=== PATIENT | female | born 1980 | race Caucasian/White ===

== ENCOUNTER 2021-08-05 18:09 | Emergency (ER) | payer BC, MEDICAID, SELFPAY ==
[2021-08-05] VITALS (15 sets, daily range): BP systolic 97–115; BP diastolic 61–71; PULSE 93; RESP 17–18; TEMP 36.9; O2SAT 92–99; BMI 34.7
--- NOTE | 2021-08-05 19:15 | ED_ITS ---
HPI - Female Genitourinary General: Chief complaint: Urogenital-Female Stated complaint: Kidneys hurting, body ache, Vomiting Time Seen by Provider: 08/05/21 19:15 Course Vital Signs: Vital signs: Vital Signs Temperature 98.5 F 08/05/21 18:42 Pulse Rate 93 08/05/21 18:42 Respiratory Rate 17 08/05/21 18:42 Blood Pressure 97/61 08/05/21 18:42 Pulse Oximetry 99 08/05/21 18:42 Coding Level of Care Code ED Scholarship Counselor for Dank Allen
--- NOTE | 2021-08-05 19:22 | W.ED.FEMALGU ---
HPI - Female Genitourinary General: Chief complaint: Urogenital-Female Stated complaint: Kidneys hurting, body ache, Vomiting Time Seen by Provider: 08/05/21 19:15 Source: patient Mode of arrival: ambulatory Limitations: no limitations History of Present Illness: HPI Narrative: 41-year-old female states that she has had a fever along with body aches with flank pain and vomiting over the last 2 to 3 days. States the left flank hurts more than the right flank states she has had difficulty tolerating any p.o. and feels dehydrated. She states she was having some dysuria but has had less urination lately. Denies any abdominal pain denies any worsening improving factors. Denies any cough or sick contacts. Denies any vaginal discharge. Associated symptoms: Reports nausea; Deny headache(s) Review of Systems Const: Reports: fever(s), chills and body aches Eyes: Denies: blurry vision or eye discomfort ENMT: Denies: throat pain or dental pain Card: Denies: chest pain Resp: Denies: dyspnea GI: Reports: nausea and vomiting : Reports: flank pain Musc: Denies: neck pain or back pain Skin/Breast: Denies: rash Neuro: Denies: headache(s) Psych: Denies: depression Ezequiel/Lymph: Denies: easy bruising All/Imm: Denies: urticaria Physical Exam Const: COMMON NORMALS: no acute distress, patient oriented x3 and healthy appearing HENMT: COMMON NORMALS: normocephalic and atraumatic HEAD & SCALP: normocephalic and atraumatic Eye: COMMON NORMALS: Equal, round and reactive pupils present and EOMs intact bilaterally PUPIL: Yes Equal, round and reactive pupils present Neck/C-Spine: COMMON NORMALS: full ROM and supple Chest: COMMONS NORMALS: normal inspection of the chest and normal palpation of entire chest wall Resp: COMMON NORMALS: normal respiratory effort, No retractions, No use of accessory muscles and clear to auscultation bilaterally AUSCULTATION: clear to auscultation bilaterally Cardio: COMMON NORMALS: regular rate, regular rhythm and No murmurs present (Cardio) RATE: regular rate RHYTHM: regular rhythm GI: COMMON NORMALS: Normal to inspection, nondistended, normoactive bowel sounds present, Soft to palpation, non-tender and no masses PALPATION: Yes Soft to palpation : OTHER: Left flank tenderness Extremity: COMMON NORMALS: normal to inspection and full ROM Neuro: COMMON NORMALS: patient oriented x3, moves all extremities and no focal motor deficits Psych: COMMON NORMALS: mental status grossly normal, Normal thought process present and cooperative THOUGHT PROCESS: Normal thought process present Skin: COMMON NORMALS: no rashes or lesions noted and no wounds GENERAL SKIN EXAM: no rashes or lesions noted Course Vital Signs: Vital signs: Vital Signs Temperature 98.5 F 08/05/21 18:42 Pulse Rate 93 08/05/21 18:42 Respiratory Rate 18 08/05/21 23:23 Blood Pressure 114/67 08/05/21 20:20 Pulse Oximetry 98 08/05/21 20:20 MDM - Female MDM Narrative: Medical decision making narrative: Patient presents here with vomiting, flank pain could have a viral gastritis patient's blood work CAT scan and urinalysis are all normal she feels improved here we will place her on pain meds along with nausea meds she is to follow-up with PCP and return if worsening she understands agrees to plan. Lab Data: Labs: Lab Results 08/05/21 08/05/21 08/05/21 19:44 19:44 19:44 WBC 4.5 10^3/uL 10^3/ uL (4.0-10.0) RBC 4.20 10^6/uL 10^6 /uL (4.1-5.3) Hgb 12.4 g/dL g/dL (11.5-15.3) Hct 36.9 % L % (37.0-47.0) MCV 87.9 fl fl (81-99) MCH 29.5 pg pg (28.0-34.0) MCHC 33.6 g/dL g/dL (30.0-36.0) RDW 14.0 % % (12.1-15.1) Plt Count 148 10^3/cmm 10^3 /cmm (130-400) MPV 10.1 fL fL (7.4-10.4) Neut % (Auto) 65.4 % % Lymph % (Auto) 28.5 % % Sandoval % (Auto) 5.5 % % Eos % (Auto) 0.2 % % Baso % (Auto) 0.2 % % Neut # (Auto) 2.96 10^3/uL 10^3 /uL (1.8-7.7) Lymph # (Auto) 1.3 10^3/uL 10^3/ uL (0.8-4.8) Sandoval # (Auto) 0.3 10^3/uL 10^3/ uL (0.2-0.9) Eos # (Auto) 0.0 10^3/uL 10^3/ uL (0.0-0.8) Baso # (Auto) 0.0 10^3/uL 10^3/ uL (0.0-0.1) Nucleated RBC % (a uto) 0 % % Nucleated RBCs # 0.0 /100WBC /100W BC Sodium Cancelled Potassium Cancelled Chloride Cancelled Carbon Dioxide Cancelled Anion Gap Cancelled BUN Cancelled Creatinine Cancelled GFR Calculation Cancelled Glucose Cancelled Calculated Osmolal ity Cancelled Calcium Cancelled Total Bilirubin Cancelled AST Cancelled ALT Cancelled Alkaline Phosphata se Cancelled Total Protein Cancelled Albumin Cancelled Globulin Cancelled Lipase Cancelled HCG, Qual Negative (Negative) Urine Color Urine Appearance Urine pH Ur Specific Gravit y Urine Protein Urine Glucose (UA) Urine Ketones Urine Blood Urine Nitrate Urine Bilirubin Urine Urobilinogen Ur Leukocyte Lisa ase Urine RBC Urine WBC Ur Squamous Epith Cells Amorphous Sediment Urine Bacteria Urine Mucus 08/05/21 08/05/21 20:21 21:31 WBC RBC Hgb Hct MCV MCH MCHC RDW Plt Count MPV Neut % (Auto) Lymph % (Auto) Sandoval % (Auto) Eos % (Auto) Baso % (Auto) Neut # (Auto) Lymph # (Auto) Sandoval # (Auto) Eos # (Auto) Baso # (Auto) Nucleated RBC % (a uto) Nucleated RBCs # Sodium 137 mmol/L mmol/L (136-145) Potassium 3.8 mmol/L mmol/L (3.5-5.1) Chloride 104 mmol/L mmol/L (98-107) Carbon Dioxide 19 mmol/L L mmol/ L (22-29) Anion Gap 17.8 (5-19) BUN 6 mg/dL mg/dL (6-20) Creatinine 0.6 mg/dL mg/dL (0.5-0.9) GFR Calculation 110.2 mL/min mL/m in (90-130) Glucose 93 mg/dL mg/dL (65-115) Calculated Osmolal ity 281 mOsm/kg L mOs m/kg (285-295) Calcium 7.7 mg/dL L mg/dL (8.5-10.5) Total Bilirubin 0.2 mg/dL mg/dL (0.15-1.2) AST 18 U/L U/L (0-32) ALT 19 U/L U/L (0-33) Alkaline Phosphata se 44 IU/L IU/L (35-105) Total Protein 6.4 g/dL L g/dL (6.6-8.7) Albumin 3.8 g/dL g/dL (3.5-5.2) Globulin 2.6 g/dL g/dL (1.3-4.6) Lipase 81 U/L H U/L (13-60) HCG, Qual Urine Color Yellow (Yellow) Urine Appearance Clear (CLEAR) Urine pH 5 (5-7) Ur Specific Gravit y 1.020 (1.005-1.030) Urine Protein Neg (Negative) Urine Glucose (UA) Norm (Normal) Urine Ketones 2+ H (Negative) Urine Blood Trace H (Negative) Urine Nitrate Negative (Negative) Urine Bilirubin Neg (Negative) Urine Urobilinogen Norm mg/dL mg/dL (Negative) Ur Leukocyte Lisa ase 1+ H (Negative) Urine RBC 0-4 /hpf H /hpf (0-2) Urine WBC 5-10 /hpf H /hpf (0-5) Ur Squamous Epith Cells 15-25 /hpf H /hpf (0-5) Amorphous Sediment Not Reportable Urine Bacteria 1+ /hpf H /hpf (NONE) Urine Mucus 2+ /hpf /hpf Imaging Data: CT Abd/Pel: Attestation: I personally reviewed and interpreted this imaging study as follows: Radiologist's impression: CT Scan Report Signed Patient: Elis Weiner Unit #: [id number] : 12/09/1956 Age/Sex: 64 / F ADM Date: 08/05/21 Loc: ER Room/Bed: Attending Dr: Ordering Provider/Ordering MD: Robin Obregon MD Date of Service: 08/05/21 Procedure(s): CT abdomen pelvis w con* [id number] Accession Number(s): [id number] Report Number: [id number] PROCEDURE INFORMATION: Exam: CT Abdomen And Pelvis With Contrast Exam date and time: 08/05/2021 8:43 PM Age: 64 years old Clinical indication: Abdominal pain; Localized; Right; Patient HX: C/O R sided abd pain TECHNIQUE: Imaging protocol: Computed tomography of the abdomen and pelvis with contrast. Radiation optimization: All CT scans at this facility use at least one of these dose optimization techniques: automated exposure control; mA and/or kV adjustment per patient size (includes targeted exams where dose is matched to clinical indication); or iterative reconstruction. Contrast material: OMNI 300; Contrast volume: 95 ml; Contrast route: INTRAVENOUS (IV); COMPARISON: MR pelvis wo con* [id number] 05/15/2016 6:46 AM RADIATION DOSE METRICS: Total DLP (mGy-cm): 1875.21 FINDINGS: Liver: Normal. No mass. Gallbladder and bile ducts: Normal. No calcified stones. No ductal dilation. Pancreas: Normal. No ductal dilation. Spleen: Normal. No splenomegaly. Adrenal glands: Normal. No mass. Kidneys and ureters: Possible small nonobstructing left renal lower pole stone. Negative for hydronephrosis. Subcentimeter simple bilateral renal cortical cysts. Hyperdense mass extends laterally from the lower pole cortex of the left kidney. The borders are somewhat lobulated. The lesion is fairly isoattenuating to the enhancing renal parenchyma. The lesion measures 2.1 cm x 2.0 cm. Stomach and bowel: Diverticulosis coli. No focal bowel wall inflammatory change. Negative for obstruction. Negative for perforation. Appendix: Normal appendix. Intraperitoneal space: Unremarkable. No free air. No significant fluid collection. Vasculature: Unremarkable. No abdominal aortic aneurysm. Lymph nodes: No abdominal lymphadenopathy. Mild left inguinal lymphadenopathy. Urinary bladder: Unremarkable as visualized. Reproductive: Hysterectomy. Bones/joints: Left hip arthroplasty has unremarkable alignment. No acute fractures. Moderate severity disc disease at L4-L5. Soft tissues: Mild degree of hazy fat stranding changes in the left inguinal subcutaneous fat. CT/CT abdomen pelvis w con* [id number] IMPRESSION: 1. No acute intra-abdominal abnormality. 2. Indeterminate left renal mass. Recommend outpatient evaluation with multiphasic contrast enhanced CT or MRI with renal protocol without and with contrast. 3. Fat stranding changes in the left groin with mild nonspecific reactive left inguinal lymphadenopathy. COMMENTS: Consistent with the [employer]'s Incidental Findings Committee white paper (J [employer] Remi [employer]iol 2018): Any incidental renal lesion less than 1 cm or classified as too small to characterize, or any incidental cystic renal lesion characterized as simple-appearing, is likely benign. No follow-up imaging is recommended for these lesions per consensus recommendations based on imaging criteria. Radiation Dose CTDIVOL = (mGy): DLP = 1875.21 (mGy-cm) Dictated By: Sonny Shah Signed By: Sonny Shah Signed Date/Time: 08/05/212210 Discharge Plan Discharge Patient Disposition: Home Clinical Impression: Bilateral flank pain Vomiting Qualifiers: Vomiting type: unspecified Vomiting Intractability: non-intractable Nausea presence: with nausea Qualified Code(s): R11.2 - Nausea with vomiting, unspecified Condition: Stable Prescriptions: New hydrocodone-acetaminophen 5-325 mg tablet 1 tab PO Q6H PRN (Reason: pain) Qty: 14 RF: 0 ondansetron 4 mg tablet,disintegrating 4 mg PO Q6H PRN (Reason: nausea and vomiting) Qty: 14 RF: 0 Discharge Orders: Discharge ED (Routine); Ordered 08/05/21 Ordered By: Robin Obregon Referrals: Aby Collins MD [Family Provider] - 1-3 days Discharge Diet: Advance as tolerated Discharge Activity: Resume usual activity Patient Instructions: Acute Nausea and Vomiting in Children (ED), Opioid Safety Coding Level of Care Code ED Consulting Technical Director for Chg Fwd Exam Comprehensive
[2021-08-05] MEDS: sodium chloride 0.9% 1,000 ML 999 ML IV ×2 (19:33→21:56)
[2021-08-05] MEDS: morphine 4 mg/mL SDV 1 mL IVP ×2 (19:33→21:55)
[2021-08-05] MEDS: ondansetron 2 mg/ML SDV 2 mL 4 MG IVP (19:33)
[2021-08-05 20:07] LABS: Basophils % 0.2 %; Eosinophils % 0.2 %; Hematocrit 36.9 % (37.0-47.0); Hemoglobin 12.4 g/dL (11.5-15.3); Lymphocytes # 1.3 10^3/uL (0.8-4.8); Lymphocytes % 28.5 %; Mean Corpuscular HGB Conc 33.6 g/dL (30.0-36.0); Mean Corpuscular Hemoglobin 29.5 pg (28.0-34.0); Mean Corpuscular Volume 87.9 fl (81-99); Mean Platelet Volume 10.1 fL (7.4-10.4); Monocytes # 0.3 10^3/uL (0.2-0.9); Monocytes % 5.5 %; Neutrophils # 2.96 10^3/uL (1.8-7.7); Neutrophils % 65.4 %; Nucleated Red Blood Cells % 0 %; Platelet Count 148 10^3/cmm (130-400); White Blood Count 4.5 10^3/uL (4.0-10.0)
[2021-08-05 20:08] LABS: HCG, Serum Qual Negative (Negative)
[2021-08-05 20:56] LABS: Alanine Aminotransferase 19 U/L (0-33); Albumin Level 3.8 g/dL (3.5-5.2); Alkaline Phosphatase 44 IU/L (35-105); Anion Gap 17.8 (5-19); Aspartate Amino Transferase 18 U/L (0-32); Blood Urea Nitrogen 6 mg/dL (6-20); Calcium 7.7 mg/dL (8.5-10.5); Carbon Dioxide 19 mmol/L (22-29); Chloride 104 mmol/L (98-107); Globulin 2.6 g/dL (1.3-4.6); Glomerular Filtration Rate 110.2 mL/min (90-130); Glucose 93 mg/dL (65-115); Lipase 81 U/L (13-60); Osmolality Calculated 281 mOsm/kg (285-295); Potassium 3.8 mmol/L (3.5-5.1); Sodium 137 mmol/L (136-145); Total Bilirubin 0.2 mg/dL (0.15-1.2); Total Protein 6.4 g/dL (6.6-8.7)
--- NOTE | 2021-08-05 21:22 | CTR_ITS ---
PROCEDURE INFORMATION: Exam: CT Abdomen And Pelvis With Contrast Exam date and time: 08/05/2021 9:22 PM Age: 41 years old Clinical indication: Abdominal pain; Other: Cal; Prior surgery; Surgery date: 6+ months; Surgery type: C-sect; Patient HX: C/O b flank pain l>r w n/v TECHNIQUE: Imaging protocol: Computed tomography of the abdomen and pelvis with contrast. Radiation optimization: All CT scans at this facility use at least one of these dose optimization techniques: automated exposure control; mA and/or kV adjustment per patient size (includes targeted exams where dose is matched to clinical indication); or iterative reconstruction. Contrast material: OMNI 300; Contrast volume: 95 ml; Contrast route: INTRAVENOUS (IV); COMPARISON: CT Abdomen/Pelvis Renal [id number] 06/12/2017 12:58 PM RADIATION DOSE METRICS: Total DLP (mGy-cm): 1726.22 FINDINGS: Lungs: Semi solid nodule in the left lower lobe measuring 8 mm. Liver: Normal. No mass. Gallbladder and bile ducts: No wall thickening, pericholecystic fluid or stones. Pancreas: Normal. No ductal dilation. Spleen: Normal. No splenomegaly. Adrenal glands: Normal. No mass. Kidneys and ureters: Normal. No hydronephrosis. Stomach and bowel: Unremarkable. No obstruction. No mucosal thickening. Appendix: No evidence of appendicitis. Intraperitoneal space: Small amount of free fluid in the pelvis. Vasculature: Unremarkable. No abdominal aortic aneurysm. Lymph nodes: Unremarkable. No enlarged lymph nodes. Urinary bladder: Unremarkable as visualized. Reproductive: Unremarkable as visualized. Bones/joints: Unremarkable. No acute fracture. Soft tissues: Unremarkable. CT/CT abdomen pelvis w con* [id number] IMPRESSION: 1. No cause for acute pain is identified. 2. Semi solid nodule in the left lower lobe measuring [address] Chest at 6-12 months to confirm persistence of the nodule, then CT Chest at 3 years and 5 years. (Reference: Tom) 3. Small amount of free fluid in the pelvis. REFERENCES: Tom Tejeda et al. Guidelines for Management of Incidental Pulmonary Nodules Detected on CT Images: From the [employer] 2017. Radiology. 2017;284(1):228-243. Radiation Dose CTDIVOL = (mGy): DLP = 1726.22 (mGy-cm)
[2021-08-05] MEDS: iohexol 300 mg/mL 100 mL Btl IV (21:58)
[2021-08-05 22:43] LABS: Add Urine Microscopic? YES; Bilirubin Urine Neg (Negative); Blood Urine Trace (Negative); Glucose Urine UA Norm (Normal); Ketones Urine 2+ (Negative); Leukocyte Esterase Urine 1+ (Negative); Nitrate Urine Negative (Negative); Protein Urine Neg (Negative); Urine Appearance Clear (CLEAR); Urine Color Yellow (Yellow); Urobilinogen Urine Norm (Negative); pH Urine 5 (5-7)
[2021-08-05 22:44] LABS: Add Urine Culture? No; Bacteria Urine 1+ /hpf; Mucus Urine 2+ /hpf; RBC Urine 0-4 /hpf (0-2); Squamous Epithelial Cell Urine 15-25 /hpf (0-5)
[2021-08-05] MEDS: HYDROmorphone 1 mg/mL INJ 1 mL IVP (23:23)
== END 2021-08-05 23:55 | disposition home or self-care (01) ==
PROVIDERS: Emergency Provider Emergency Medicine
DX: R10.9 Unspecified abdominal pain (principal); R11.2 Nausea with vomiting, unspecified
CPT/HCPCS: 74177; 80053; 81001; 83690; 84703; 85025; 96361; 96374; 96375; 96376; 99284; J1170; J2270; J2405; J7030; Q9967

== ENCOUNTER 2021-08-09 13:34 | Outpatient (CLI) | payer OTHER, BC, MEDICAID, SELFPAY ==
--- NOTE | 2021-08-09 13:46 | US_ITS ---
WS: [id number] TRANSABDOMINAL PELVIC AND TRANSVAGINAL PELVIC ULTRASOUND HISTORY: LEFT PELVIC PAIN/FEVER COMPARISON: None available. Uterus: 7.7 cm x 5.3 cm x 4.1 cm. Normal size anteverted uterus. Endometrium: 0.5 cm. Poorly visualized but no abnormality identified. LEFT ovary: 2.7 cm x 1.9 cm x 1.4 cm. RIGHT ovary is not visualized. There is a small amount of free fluid in the cul-de-sac. US/US pelvic with transvaginal IMPRESSION: 1. Technically very difficult evaluation of the uterus and ovaries. 2. RIGHT ovary is not visualized. The LEFT ovary is unremarkable. 3. Small amount of free fluid in the cul-de-sac.
== END 2021-08-09 13:35 | disposition home or self-care (01) ==
PROVIDERS: PCP Family Medicine; Visit Provider Family Medicine
DX: R10.2 Pelvic and perineal pain (principal); R50.9 Fever, unspecified
CPT/HCPCS: 76830; 76856; 93976

== ENCOUNTER 2021-08-11 11:02 | Inpatient (IN) | payer OTHER, BC, MEDICAID, SELFPAY ==
[2021-08-11] VITALS (8 sets, daily range): BP systolic 102–121; BP diastolic 65–69; PULSE 69–87; RESP 14–20; TEMP 36.7; O2SAT 92–95; BMI 34.7
--- NOTE | 2021-08-11 11:44 | ED_ITS ---
Documented by User: RANJANA Price 08/12/21 07:08 HPI - Female Genitourinary General: Chief complaint: Urogenital-Female Stated complaint: Kidney infection Time Seen by Provider: 08/11/21 11:19 Source: patient Mode of arrival: ambulatory Limitations: no limitations History of Present Illness: HPI Narrative: Patient is a nice 41-year-old female who presents to ED today with a complaint of severe left flank pain. Patient was seen in our facility on 08/05 with bilateral flank pain nausea and vomiting. According to documentation her labs and UA were fairly unremarkable. CT imaging was normal. Patient was discharged home with hydrocodone/zofran. She states symptoms did not seem to be improving so she contacted her PCP Dr. Conrad who saw her in his office. She states UA was performed which looked suspicious for infection and was therefore placed on ciprofloxacin. She has been on this medication for the past 3 days and is still not improving. She complains of left flank pain, left-sided abdominal pain, dysuria, and urinary frequency. She reports chills and subjective fevers. She does report starting her menstrual cycle a few days ago which was earlier than normal (she contacted Dr. Conrad regarding this and he did order a pelvic ultrasound which was normal). She has no history of pyelonephritis or nephrolithiasis. MD elicited complaint: dysuria and flank pain Severity: severe Female Urogenital Radiation: LLQ and L Flank Quality of pain: sharp Consistency: constant Vaginal discharge: none Associated symptoms: Reports nausea; Deny abdominal pain, headache(s) or vaginal discharge Treatment prior to arrival: other (pain/nausea meds, antibiotics) Sexual activity: Yes (monogamous with ) Patient : No Review of Systems Const: Reports: fever(s) (subjective), chills and change in appetite; Denies: body aches Card: Denies: chest pain Resp: Denies: dyspnea GI: Reports: nausea and vomiting; Denies: abdominal pain, diarrhea or change in bowel habits : Reports: flank pain, dysuria, urinary frequency and hematuria (unknown; taking Azo so urine is orange); Denies: difficulty voiding, urinary urgency, urinary hesitancy, vaginal odor, vaginal bleeding or vaginal discharge Musc: Reports: back pain (L flank); Denies: neck pain, extremity pain or joint pain Skin/Breast: Denies: rash Neuro: Denies: headache(s), numbness in extremities, weakness in extremities, sensory changes or dizziness Physical Exam Const: COMMON NORMALS: average body habitus, patient oriented x3, no limitations, healthy appearing, alert and well nourished GENERAL APPEARANCE: cooperative and in distress (appears uncomfortable secondary to pain) ORIENTATION/CONSCIOUSNESS: Yes awake, Yes oriented to person, Yes oriented to place and Yes oriented to time HENMT: COMMON NORMALS: normocephalic and atraumatic HEAD & SCALP: normocephalic and atraumatic Resp: COMMON NORMALS: normal respiratory effort and clear to auscultation bilaterally AUSCULTATION: clear to auscultation bilaterally Cardio: COMMON NORMALS: regular rate and regular rhythm RATE: regular rate RHYTHM: regular rhythm GI: COMMON NORMALS: Normal to inspection, nondistended, normoactive bowel sounds present, Soft to palpation, No hepatosplenomegaly present and no masses INSPECTION: Yes normal to inspection PALPATION: Yes Soft to palpation, Yes Tenderness to palpation present (GI) (throughout L abdomen) and Yes No hepatosplenomegaly present : BLADDER/KIDNEY EXAM: Yes CVA tenderness on the left Back/Pelvis: COMMON NORMALS: thoracic and lumbar spine normal to inspection, no thoracic nor lumbar tenderness and thoraco-lumbar ROM normal GENERAL BACK: Yes CVA tenderness Extremity: COMMON NORMALS: normal to inspection Neuro: COMMON NORMALS: patient oriented x3 SENSORIUM/ORIENTATION: Yes alert, Yes oriented to person, Yes oriented to place and Yes oriented to time Skin: COMMON NORMALS: no rashes or lesions noted GENERAL SKIN EXAM: no rashes or lesions noted Course Vital Signs: Vital signs: Vital Signs Temperature 98.9 F 08/15/21 20:00 Pulse Rate 71 08/15/21 20:00 Respiratory Rate 20 H 08/15/21 20:00 Blood Pressure 94/59 08/15/21 20:00 Pulse Oximetry 95 08/15/21 20:00 MDM - Female MDM Narrative: Medical decision making narrative: Patient has not tachycardic or febrile. Her white count is 3.3. Chemistry panel with minor electrolyte abnormalities but nothing overly remarkable. She has mild elevations to her lipase at 128. I would have a low suspicion for acute pancreatitis at this time. is negative. UA with color interference secondary to her Azo use. She is leukocyte esterase negative and only 10-15 WBCs with 1+ bacteria. CT scan is overall unremarkable apart from significant development of bilateral lower lobe pneumonitis. Radiologist recommended correlation with COVID-19. Rapid COVID was negative. She refused PCR testing (later agreed to). This could possibly explain her flank pain as well as her subjective fevers, chills, and body aches. Patient continues to feel very poorly. I spoke to Dr. Wang who will also evaluate patient seeing this is her 3rd medical visit for similar symptoms. Lab Data: Labs: Lab Results 08/11/21 08/11/21 08/11/21 11:42 11:42 11:42 WBC 3.3 10^3/uL L 10^ 3/uL (4.0-10.0) RBC 3.90 10^6/uL L 10 ^6/uL (4.1-5.3) Hgb 11.4 g/dL L g/dL (11.5-15.3) Hct 33.3 % L % (37.0-47.0) MCV 85.4 fl fl (81-99) MCH 29.2 pg pg (28.0-34.0) MCHC 34.2 g/dL g/dL (30.0-36.0) RDW 13.4 % % (12.1-15.1) Plt Count 99 10^3/cmm L 10^ 3/cmm (130-400) MPV 9.5 fL fL (7.4-10.4) Neut % (Auto) 67.0 % % Lymph % (Auto) 27.9 % % [place] % (Auto) 4.2 % % Eos % (Auto) 0.3 % % Baso % (Auto) 0.3 % % Neut # (Auto) 2.21 10^3/uL 10^3 /uL (1.8-7.7) Lymph # (Auto) 0.9 10^3/uL 10^3/ uL (0.8-4.8) [place] # (Auto) 0.1 10^3/uL L 10^ 3/uL (0.2-0.9) Eos # (Auto) 0.0 10^3/uL 10^3/ uL (0.0-0.8) Baso # (Auto) 0.0 10^3/uL 10^3/ uL (0.0-0.1) Nucleated RBC % (a uto) 0 % % Nucleated RBCs # 0.0 /100WBC /100W BC Sodium 134 mmol/L L mmol /L (136-145) Potassium 3.3 mmol/L L mmol /L (3.5-5.1) Chloride 100 mmol/L mmol/L (98-107) Carbon Dioxide 21 mmol/L L mmol/ L (22-29) Anion Gap 16.3 (5-19) BUN 7 mg/dL mg/dL (6-20) Creatinine 0.5 mg/dL mg/dL (0.5-0.9) GFR Calculation 136.0 mL/min H mL /min (90-130) Glucose 88 mg/dL mg/dL (65-115) Calculated Osmolal ity 275 mOsm/kg L mOs m/kg (285-295) Calcium 7.8 mg/dL L mg/dL (8.5-10.5) Magnesium Total Bilirubin 0.2 mg/dL mg/dL (0.15-1.2) AST 35 U/L H U/L (0-32) ALT 20 U/L U/L (0-33) Alkaline Phosphata se 55 IU/L IU/L (35-105) C-Reactive Protein Total Protein 6.1 g/dL L g/dL (6.6-8.7) Albumin 3.6 g/dL g/dL (3.5-5.2) Globulin 2.5 g/dL g/dL (1.3-4.6) Lipase Procalcitonin HCG, Qual Negative (Negative) Urine Color Urine Appearance Urine pH Ur Specific Gravit y Urine Protein Urine Glucose (UA) Urine Ketones Urine Blood Urine Nitrate Urine Bilirubin Urine Urobilinogen Ur Leukocyte Lisa ase Urine RBC Urine WBC Ur Squamous Epith Cells Amorphous Sediment Urine Bacteria Hyaline Casts Urine Mucus Influenza Type A A g Influenza Type B A g SARS-CoV-2 RNA (RT -PCR) SARS-CoV-2 Ag (Rap id) 08/11/21 08/11/21 08/11/21 11:42 11:42 11:42 WBC RBC Hgb Hct MCV MCH MCHC RDW Plt Count MPV Neut % (Auto) Lymph % (Auto) [place] % (Auto) Eos % (Auto) Baso % (Auto) Neut # (Auto) Lymph # (Auto) [place] # (Auto) Eos # (Auto) Baso # (Auto) Nucleated RBC % (a uto) Nucleated RBCs # Sodium Potassium Chloride Carbon Dioxide Anion Gap BUN Creatinine GFR Calculation Glucose Calculated Osmolal ity Calcium Magnesium Total Bilirubin AST ALT Alkaline Phosphata se C-Reactive Protein 20.9 mg/L H mg/L (0.0-4.9) Total Protein Albumin Globulin Lipase 128 U/L H U/L (13-60) Procalcitonin 0.04 ng/mL ng/mL (0-0.5) HCG, Qual Urine Color Dark yellow (Yellow) Urine Appearance Hazy A (CLEAR) Urine pH 5 (5-7) Ur Specific Gravit y 1.025 (1.005-1.030) Urine Protein 1+ H (Negative) Urine Glucose (UA) Norm (Normal) Urine Ketones 2+ H (Negative) Urine Blood 3+ H (Negative) Urine Nitrate Not tested A (Negative) Urine Bilirubin 2+ H (Negative) Urine Urobilinogen 4 mg/dL H mg/dL (Negative) Ur Leukocyte Lisa ase Negative (Negative) Urine RBC 10-15 /hpf H /hpf (0-2) Urine WBC 10-15 /hpf H /hpf (0-5) Ur Squamous Epith Cells 10-15 /hpf H /hpf (0-5) Amorphous Sediment Not Reportable Urine Bacteria 1+ /hpf H /hpf (NONE) Hyaline Casts Rare /lpf /lpf Urine Mucus 1+ /hpf /hpf Influenza Type A A g Influenza Type B A g SARS-CoV-2 RNA (RT -PCR) SARS-CoV-2 Ag (Rap id) 08/11/21 08/11/21 08/11/21 14:43 18:08 19:15 WBC RBC Hgb Hct MCV MCH MCHC RDW Plt Count MPV Neut % (Auto) Lymph % (Auto) [place] % (Auto) Eos % (Auto) Baso % (Auto) Neut # (Auto) Lymph # (Auto) [place] # (Auto) Eos # (Auto) Baso # (Auto) Nucleated RBC % (a uto) Nucleated RBCs # Sodium Potassium Chloride Carbon Dioxide Anion Gap BUN Creatinine GFR Calculation Glucose Calculated Osmolal ity Calcium Magnesium Total Bilirubin AST ALT Alkaline Phosphata se C-Reactive Protein Total Protein Albumin Globulin Lipase Procalcitonin HCG, Qual Urine Color Yellow (Yellow) Urine Appearance Clear (CLEAR) Urine pH 6.5 (5-7) Ur Specific Gravit y 1.000 L (1.005-1.030) Urine Protein Trace (Negative) Urine Glucose (UA) Norm (Normal) Urine Ketones 2+ H (Negative) Urine Blood 3+ H (Negative) Urine Nitrate Negative (Negative) Urine Bilirubin Neg (Negative) Urine Urobilinogen 1 mg/dL H mg/dL (Negative) Ur Leukocyte Lisa ase Negative (Negative) Urine RBC 15-25 /hpf H /hpf (0-2) Urine WBC 0-4 /hpf H /hpf (0-5) Ur Squamous Epith Cells 0-4 /hpf H /hpf (0-5) Amorphous Sediment Not Reportable Urine Bacteria Trace /hpf /hpf (NONE) Hyaline Casts Urine Mucus Influenza Type A A g Negative (Negative) Influenza Type B A g Negative (Negative) SARS-CoV-2 RNA (RT -PCR) SARS-CoV-2 Ag (Rap id) Negative (Negative) 08/12/21 08/12/21 08/12/21 06:31 06:31 06:31 WBC 3.2 10^3/uL L 10^ 3/uL (4.0-10.0) RBC 4.05 10^6/uL L 10 ^6/uL (4.1-5.3) Hgb 11.8 g/dL g/dL (11.5-15.3) Hct 35.7 % L % (37.0-47.0) MCV 88.1 fl fl (81-99) MCH 29.1 pg pg (28.0-34.0) MCHC 33.1 g/dL g/dL (30.0-36.0) RDW 13.4 % % (12.1-15.1) Plt Count 107 10^3/cmm L 10 ^3/cmm (130-400) MPV 9.8 fL fL (7.4-10.4) Neut % (Auto) 53.1 % % Lymph % (Auto) 39.4 % % [place] % (Auto) 6.9 % % Eos % (Auto) 0.0 % % Baso % (Auto) 0.3 % % Neut # (Auto) 1.70 10^3/uL L 10 ^3/uL (1.8-7.7) Lymph # (Auto) 1.3 10^3/uL 10^3/ uL (0.8-4.8) [place] # (Auto) 0.2 10^3/uL 10^3/ uL (0.2-0.9) Eos # (Auto) 0.0 10^3/uL 10^3/ uL (0.0-0.8) Baso # (Auto) 0.0 10^3/uL 10^3/ uL (0.0-0.1) Nucleated RBC % (a uto) 0 % % Nucleated RBCs # 0.0 /100WBC /100W BC Sodium 135 mmol/L L mmol /L (136-145) Potassium 3.2 mmol/L L mmol /L (3.5-5.1) Chloride 99 mmol/L mmol/L (98-107) Carbon Dioxide 20 mmol/L L mmol/ L (22-29) Anion Gap 19.2 H (5-19) BUN 7 mg/dL mg/dL (6-20) Creatinine 0.5 mg/dL mg/dL (0.5-0.9) GFR Calculation 136.0 mL/min H mL /min (90-130) Glucose 93 mg/dL mg/dL (65-115) Calculated Osmolal ity 278 mOsm/kg L mOs m/kg (285-295) Calcium 7.8 mg/dL L mg/dL (8.5-10.5) Magnesium Total Bilirubin 0.3 mg/dL mg/dL (0.15-1.2) AST 34 U/L H U/L (0-32) ALT 18 U/L U/L (0-33) Alkaline Phosphata se 55 IU/L IU/L (35-105) C-Reactive Protein Total Protein 6.2 g/dL L g/dL (6.6-8.7) Albumin 3.5 g/dL g/dL (3.5-5.2) Globulin 2.7 g/dL g/dL (1.3-4.6) Lipase Procalcitonin 0.04 ng/mL ng/mL (0-0.5) HCG, Qual Urine Color Urine Appearance Urine pH Ur Specific Gravit y Urine Protein Urine Glucose (UA) Urine Ketones Urine Blood Urine Nitrate Urine Bilirubin Urine Urobilinogen Ur Leukocyte Lisa ase Urine RBC Urine WBC Ur Squamous Epith Cells Amorphous Sediment Urine Bacteria Hyaline Casts Urine Mucus Influenza Type A A g Influenza Type B A g SARS-CoV-2 RNA (RT -PCR) SARS-CoV-2 Ag (Rap id) 08/12/21 08/12/21 06:31 11:55 WBC RBC Hgb Hct MCV MCH MCHC RDW Plt Count MPV Neut % (Auto) Lymph % (Auto) [place] % (Auto) Eos % (Auto) Baso % (Auto) Neut # (Auto) Lymph # (Auto) [place] # (Auto) Eos # (Auto) Baso # (Auto) Nucleated RBC % (a uto) Nucleated RBCs # Sodium Potassium Chloride Carbon Dioxide Anion Gap BUN Creatinine GFR Calculation Glucose Calculated Osmolal ity Calcium Magnesium 1.9 mg/dL mg/dL (1.7-2.3) Total Bilirubin AST ALT Alkaline Phosphata se C-Reactive Protein Total Protein Albumin Globulin Lipase Procalcitonin HCG, Qual Urine Color Urine Appearance Urine pH Ur Specific Gravit y Urine Protein Urine Glucose (UA) Urine Ketones Urine Blood Urine Nitrate Urine Bilirubin Urine Urobilinogen Ur Leukocyte Lisa ase Urine RBC Urine WBC Ur Squamous Epith Cells Amorphous Sediment Urine Bacteria Hyaline Casts Urine Mucus Influenza Type A A g Influenza Type B A g SARS-CoV-2 RNA (RT -PCR) Detected A (NOT DETECTED) SARS-CoV-2 Ag (Rap id) Imaging Data: CT Abd/Pel: Radiologist's impression: [place] [address] CT Scan Report Signed Patient: Ashley Gee Unit #: [id number] : 1980 Age/Sex: 41 / F ADM Date: 08/11/21 Loc: ER Room/Bed: Attending Dr: Ordering Provider/Ordering MD: Fina Burr Date of Service: 08/11/21 Procedure(s): CT abdomen pelvis w con* [id number] Accession Number(s): [id number] Report Number: [id number] WS: [id number] CT ABDOMEN AND PELVIS WITH CONTRAST HISTORY: severe L flank, abdominal pain TECHNIQUE: Imaging performed of the abdomen and pelvis with IV contrast. Single phase imaging of the abdomen. Coronal and sagittal reformats are submitted. All CT scans at [facility] use at least one of these dose optimization techniques: automated exposure control; mA and/or kV adjustment per patient size (includes targeted exams where dose is matched to clinical indication); or iterative reconstruction. IV CONTRAST: Omnipaque 300; 95 mL IV. Oral contrast: No DLP: 1791.57 mGy.cm COMPARISON: 08/05/2021 Lower thorax: Significant change in appearance of the lung bases. Bilateral dense consolidations in opacifications consistent with lower lobe pneumonia. Areas of dense consolidation and some solid nodules. Heart is normal size. Moderate size hiatal hernia. Liver/biliary system: Normal size with no intrahepatic dilatation. Gallbladder: Normal. No gallstones or wall thickening. No pericholecystic fluid. Pancreas: Normal size pancreas and pancreatic duct. No adjacent inflammation. Spleen: Normal size spleen. No mass or infarct. Adrenal glands: Normal. Right kidney: Normal. Left kidney: Normal. Aorta: Normal. Lymphadenopathy: None. Free fluid: There is a very small amount of free fluid in the cul-de-sac which could be physiologic. GI tract: Normal appendix. Mild constipation throughout the RIGHT and transverse colon. No significant diverticular disease or obstruction of the colon. No small bowel dilatation. Abdominal wall: Unremarkable abdominal wall. No hernia. Pelvis: Small amount of free fluid in the pelvis, just slightly greater to the RIGHT may be physiologic. Uterus appears normal and normally anteverted. No pelvic masses. There is pulmonary venous congestion. More significant dilatation of the LEFT sided gonadal veins. Bones: Unremarkable. CT/CT abdomen pelvis w con* [id number] IMPRESSION: 1. Interval development of bilateral lower lobe pneumonias with adjacent areas of pneumonitis. Correlate for possible Covid 19. 2. Small amount of free fluid in the cul-de-sac is physiologic. 3. Normal appendix. 4. No renal stone or obstruction. Dictated By: Paula Red DO Signed By: Paula Red DO Signed Date/Time: 08/11/21 1401 DD/ 1355 Discharge Plan Discharge Patient Disposition: Admitted As Inpatient Admit Provider: Gustabo Duong Sign Out Sign Out Data: Patient Sign Out occurred on 08/11/21 at 17:13. Patient's care was discussed, and care was transferred from to Sagar Wang MD. Coding Level of Care Code ED Facing Machine Operator for Chg Fwd Exam Comprehensive Documented by User: Sagar Wang MD 08/15/21 21:35 HPI - Female Genitourinary General: Chief complaint: Urogenital-Female Stated complaint: Kidney infection Time Seen by Provider: 08/11/21 11:19 Course Vital Signs: Vital signs: Vital Signs Temperature 98.9 F 08/15/21 20:00 Pulse Rate 71 08/15/21 20:00 Respiratory Rate 20 H 08/15/21 20:00 Blood Pressure 94/59 08/15/21 20:00 Pulse Oximetry 95 08/15/21 20:00 MDM - Female MDM Narrative: Medical decision making narrative: I discussed this case with RANJANA Price. I have reviewed labs, imaging, documentation and agree as documented. I personally evaluated the patient and reperformed E/M as indicated. Challenging situation, patient has findings most consistent with Covid pneumonia however negative rapid test. Overall clinical appearance despite treatment is somewhat concerning, she is still not able to tolerate p.o. intake and as such, after discussion, patient will be admitted for observation and continued treatment. A 10 point review of systems was performed and negative except as noted above. GENERAL/CONSTITUTIONAL -ill appearing. No acute distress. Eyes - PERRL, no conjunctival injection ENMT - Atraumatic external nose and ears. Dry mucous membranes NECK - supple. trachea midline CARDIOVASCULAR - regular rate and rhythm. Peripheral pulses 2+ and equal RESPIRATORY - coarse and decreased to auscultation bilaterally. Tachypnea with exertion ABDOMEN/GI -generalized mild tenderness palpation. No tenderness to percussion or evidence of peritonitis MSK - Extremities without obvious deformity or tenderness to palpation SKIN - Warm, Dry NEURO - alert and appropriately oriented. Moves all extremities equally. Sagar Wang MD Emergency Medicine Lab Data: Labs: Lab Results 08/11/21 08/11/21 08/11/21 11:42 11:42 11:42 WBC 3.3 10^3/uL L 10^ 3/uL (4.0-10.0) RBC 3.90 10^6/uL L 10 ^6/uL (4.1-5.3) Hgb 11.4 g/dL L g/dL (11.5-15.3) Hct 33.3 % L % (37.0-47.0) MCV 85.4 fl fl (81-99) MCH 29.2 pg pg (28.0-34.0) MCHC 34.2 g/dL g/dL (30.0-36.0) RDW 13.4 % % (12.1-15.1) Plt Count 99 10^3/cmm L 10^ 3/cmm (130-400) MPV 9.5 fL fL (7.4-10.4) Neut % (Auto) 67.0 % % Lymph % (Auto) 27.9 % % [place] % (Auto) 4.2 % % Eos % (Auto) 0.3 % % Baso % (Auto) 0.3 % % Neut # (Auto) 2.21 10^3/uL 10^3 /uL (1.8-7.7) Lymph # (Auto) 0.9 10^3/uL 10^3/ uL (0.8-4.8) [place] # (Auto) 0.1 10^3/uL L 10^ 3/uL (0.2-0.9) Eos # (Auto) 0.0 10^3/uL 10^3/ uL (0.0-0.8) Baso # (Auto) 0.0 10^3/uL 10^3/ uL (0.0-0.1) Nucleated RBC % (a uto) 0 % % Nucleated RBCs # 0.0 /100WBC /100W BC Sodium 134 mmol/L L mmol /L (136-145) Potassium 3.3 mmol/L L mmol /L (3.5-5.1) Chloride 100 mmol/L mmol/L (98-107) Carbon Dioxide 21 mmol/L L mmol/ L (22-29) Anion Gap 16.3 (5-19) BUN 7 mg/dL mg/dL (6-20) Creatinine 0.5 mg/dL mg/dL (0.5-0.9) GFR Calculation 136.0 mL/min H mL /min (90-130) Glucose 88 mg/dL mg/dL (65-115) Calculated Osmolal ity 275 mOsm/kg L mOs m/kg (285-295) Calcium 7.8 mg/dL L mg/dL (8.5-10.5) Magnesium Total Bilirubin 0.2 mg/dL mg/dL (0.15-1.2) AST 35 U/L H U/L (0-32) ALT 20 U/L U/L (0-33) Alkaline Phosphata se 55 IU/L IU/L (35-105) C-Reactive Protein Total Protein 6.1 g/dL L g/dL (6.6-8.7) Albumin 3.6 g/dL g/dL (3.5-5.2) Globulin 2.5 g/dL g/dL (1.3-4.6) Lipase Procalcitonin HCG, Qual Negative (Negative) Urine Color Urine Appearance Urine pH Ur Specific Gravit y Urine Protein Urine Glucose (UA) Urine Ketones Urine Blood Urine Nitrate Urine Bilirubin Urine Urobilinogen Ur Leukocyte Lisa ase Urine RBC Urine WBC Ur Squamous Epith Cells Amorphous Sediment Urine Bacteria Hyaline Casts Urine Mucus Influenza Type A A g Influenza Type B A g SARS-CoV-2 RNA (RT -PCR) SARS-CoV-2 Ag (Rap id) 08/11/21 08/11/21 08/11/21 11:42 11:42 11:42 WBC RBC Hgb Hct MCV MCH MCHC RDW Plt Count MPV Neut % (Auto) Lymph % (Auto) [place] % (Auto) Eos % (Auto) Baso % (Auto) Neut # (Auto) Lymph # (Auto) [place] # (Auto) Eos # (Auto) Baso # (Auto) Nucleated RBC % (a uto) Nucleated RBCs # Sodium Potassium Chloride Carbon Dioxide Anion Gap BUN Creatinine GFR Calculation Glucose Calculated Osmolal ity Calcium Magnesium Total Bilirubin AST ALT Alkaline Phosphata se C-Reactive Protein 20.9 mg/L H mg/L (0.0-4.9) Total Protein Albumin Globulin Lipase 128 U/L H U/L (13-60) Procalcitonin 0.04 ng/mL ng/mL (0-0.5) HCG, Qual Urine Color Dark yellow (Yellow) Urine Appearance Hazy A (CLEAR) Urine pH 5 (5-7) Ur Specific Gravit y 1.025 (1.005-1.030) Urine Protein 1+ H (Negative) Urine Glucose (UA) Norm (Normal) Urine Ketones 2+ H (Negative) Urine Blood 3+ H (Negative) Urine Nitrate Not tested A (Negative) Urine Bilirubin 2+ H (Negative) Urine Urobilinogen 4 mg/dL H mg/dL (Negative) Ur Leukocyte Lisa ase Negative (Negative) Urine RBC 10-15 /hpf H /hpf (0-2) Urine WBC 10-15 /hpf H /hpf (0-5) Ur Squamous Epith Cells 10-15 /hpf H /hpf (0-5) Amorphous Sediment Not Reportable Urine Bacteria 1+ /hpf H /hpf (NONE) Hyaline Casts Rare /lpf /lpf Urine Mucus 1+ /hpf /hpf Influenza Type A A g Influenza Type B A g SARS-CoV-2 RNA (RT -PCR) SARS-CoV-2 Ag (Rap id) 08/11/21 08/11/21 08/11/21 14:43 18:08 19:15 WBC RBC Hgb Hct MCV MCH MCHC RDW Plt Count MPV Neut % (Auto) Lymph % (Auto) [place] % (Auto) Eos % (Auto) Baso % (Auto) Neut # (Auto) Lymph # (Auto) [place] # (Auto) Eos # (Auto) Baso # (Auto) Nucleated RBC % (a uto) Nucleated RBCs # Sodium Potassium Chloride Carbon Dioxide Anion Gap BUN Creatinine GFR Calculation Glucose Calculated Osmolal ity Calcium Magnesium Total Bilirubin AST ALT Alkaline Phosphata se C-Reactive Protein Total Protein Albumin Globulin Lipase Procalcitonin HCG, Qual Urine Color Yellow (Yellow) Urine Appearance Clear (CLEAR) Urine pH 6.5 (5-7) Ur Specific Gravit y 1.000 L (1.005-1.030) Urine Protein Trace (Negative) Urine Glucose (UA) Norm (Normal) Urine Ketones 2+ H (Negative) Urine Blood 3+ H (Negative) Urine Nitrate Negative (Negative) Urine Bilirubin Neg (Negative) Urine Urobilinogen 1 mg/dL H mg/dL (Negative) Ur Leukocyte Lisa ase Negative (Negative) Urine RBC 15-25 /hpf H /hpf (0-2) Urine WBC 0-4 /hpf H /hpf (0-5) Ur Squamous Epith Cells 0-4 /hpf H /hpf (0-5) Amorphous Sediment Not Reportable Urine Bacteria Trace /hpf /hpf (NONE) Hyaline Casts Urine Mucus Influenza Type A A g Negative (Negative) Influenza Type B A g Negative (Negative) SARS-CoV-2 RNA (RT -PCR) SARS-CoV-2 Ag (Rap id) Negative (Negative) 08/12/21 08/12/21 08/12/21 06:31 06:31 06:31 WBC 3.2 10^3/uL L 10^ 3/uL (4.0-10.0) RBC 4.05 10^6/uL L 10 ^6/uL (4.1-5.3) Hgb 11.8 g/dL g/dL (11.5-15.3) Hct 35.7 % L % (37.0-47.0) MCV 88.1 fl fl (81-99) MCH 29.1 pg pg (28.0-34.0) MCHC 33.1 g/dL g/dL (30.0-36.0) RDW 13.4 % % (12.1-15.1) Plt Count 107 10^3/cmm L 10 ^3/cmm (130-400) MPV 9.8 fL fL (7.4-10.4) Neut % (Auto) 53.1 % % Lymph % (Auto) 39.4 % % [place] % (Auto) 6.9 % % Eos % (Auto) 0.0 % % Baso % (Auto) 0.3 % % Neut # (Auto) 1.70 10^3/uL L 10 ^3/uL (1.8-7.7) Lymph # (Auto) 1.3 10^3/uL 10^3/ uL (0.8-4.8) [place] # (Auto) 0.2 10^3/uL 10^3/ uL (0.2-0.9) Eos # (Auto) 0.0 10^3/uL 10^3/ uL (0.0-0.8) Baso # (Auto) 0.0 10^3/uL 10^3/ uL (0.0-0.1) Nucleated RBC % (a uto) 0 % % Nucleated RBCs # 0.0 /100WBC /100W BC Sodium 135 mmol/L L mmol /L (136-145) Potassium 3.2 mmol/L L mmol /L (3.5-5.1) Chloride 99 mmol/L mmol/L (98-107) Carbon Dioxide 20 mmol/L L mmol/ L (22-29) Anion Gap 19.2 H (5-19) BUN 7 mg/dL mg/dL (6-20) Creatinine 0.5 mg/dL mg/dL (0.5-0.9) GFR Calculation 136.0 mL/min H mL /min (90-130) Glucose 93 mg/dL mg/dL (65-115) Calculated Osmolal ity 278 mOsm/kg L mOs m/kg (285-295) Calcium 7.8 mg/dL L mg/dL (8.5-10.5) Magnesium Total Bilirubin 0.3 mg/dL mg/dL (0.15-1.2) AST 34 U/L H U/L (0-32) ALT 18 U/L U/L (0-33) Alkaline Phosphata se 55 IU/L IU/L (35-105) C-Reactive Protein Total Protein 6.2 g/dL L g/dL (6.6-8.7) Albumin 3.5 g/dL g/dL (3.5-5.2) Globulin 2.7 g/dL g/dL (1.3-4.6) Lipase Procalcitonin 0.04 ng/mL ng/mL (0-0.5) HCG, Qual Urine Color Urine Appearance Urine pH Ur Specific Gravit y Urine Protein Urine Glucose (UA) Urine Ketones Urine Blood Urine Nitrate Urine Bilirubin Urine Urobilinogen Ur Leukocyte Lisa ase Urine RBC Urine WBC Ur Squamous Epith Cells Amorphous Sediment Urine Bacteria Hyaline Casts Urine Mucus Influenza Type A A g Influenza Type B A g SARS-CoV-2 RNA (RT -PCR) SARS-CoV-2 Ag (Rap id) 08/12/21 08/12/21 06:31 11:55 WBC RBC Hgb Hct MCV MCH MCHC RDW Plt Count MPV Neut % (Auto) Lymph % (Auto) [place] % (Auto) Eos % (Auto) Baso % (Auto) Neut # (Auto) Lymph # (Auto) [place] # (Auto) Eos # (Auto) Baso # (Auto) Nucleated RBC % (a uto) Nucleated RBCs # Sodium Potassium Chloride Carbon Dioxide Anion Gap BUN Creatinine GFR Calculation Glucose Calculated Osmolal ity Calcium Magnesium 1.9 mg/dL mg/dL (1.7-2.3) Total Bilirubin AST ALT Alkaline Phosphata se C-Reactive Protein Total Protein Albumin Globulin Lipase Procalcitonin HCG, Qual Urine Color Urine Appearance Urine pH Ur Specific Gravit y Urine Protein Urine Glucose (UA) Urine Ketones Urine Blood Urine Nitrate Urine Bilirubin Urine Urobilinogen Ur Leukocyte Lisa ase Urine RBC Urine WBC Ur Squamous Epith Cells Amorphous Sediment Urine Bacteria Hyaline Casts Urine Mucus Influenza Type A A g Influenza Type B A g SARS-CoV-2 RNA (RT -PCR) Detected A (NOT DETECTED) SARS-CoV-2 Ag (Rap id) Discharge Plan Discharge Patient Disposition: Admitted As Inpatient Admit Provider: Gustabo Duong Sign Out Sign Out Data: Patient Sign Out occurred on 08/11/21 at 17:13. Patient's care was discussed, and care was transferred from to Sagar Wang MD. Coding Level of Care Code ED Facing Machine Operator for [facility] Fwd Exam Comprehensive
--- NOTE | 2021-08-11 11:56 | CT_ITS ---
WS: [id number] CT ABDOMEN AND PELVIS WITH CONTRAST HISTORY: severe L flank, abdominal pain TECHNIQUE: Imaging performed of the abdomen and pelvis with IV contrast. Single phase imaging of the abdomen. Coronal and sagittal reformats are submitted. All CT scans at [facility] use at [address] one of these dose optimization techniques: automated exposure control; mA and/or kV adjustment per patient size (includes targeted exams where dose is matched to clinical indication); or iterative re construction. IV CONTRAST: Omnipaque 300; 95 mL IV. Oral contrast: No DLP: 1791.57 mGy.cm COMPARISON: 08/05/2021 Lower thorax: Significant change in appearance of the lung bases. Bilateral dense consolidations in o pacifications consistent with lower lobe pneumonia. Areas of dense consolidation and some solid nodul es. Heart is normal size. Moderate size hiatal hernia. Liver/biliary system: Normal size with no intrahepatic dilatation. Gallbladder: Normal. No gallstones or wall thickening. No pericholecystic fluid. Pancreas: Normal size pancreas and pancreatic duct. No adjacent inflammation. Spleen: Normal size spleen. No mass or infarct. Adrenal glands: Normal. Right kidney: Normal. Left kidney: Normal. Aorta: Normal. Lymphadenopathy: None. Free fluid: There is a very small amount of free fluid in the cul-de-sac which could be physiologic. GI tract: Normal appendix. Mild constipation throughout the RIGHT and transverse colon. No significan t diverticular disease or obstruction of the colon. No small bowel dilatation. Abdominal wall: Unremarkable abdominal wall. No hernia. Pelvis: Small amount of free fluid in the pelvis, just slightly greater to the RIGHT may be physiolog ic. Uterus appears normal and normally anteverted. No pelvic masses. There is pulmonary venous conges tion. More significant dilatation of the LEFT sided gonadal veins. Bones: Unremarkable. CT/CT abdomen pelvis w con* [id number] IMPRESSION: 1. Interval development of bilateral lower lobe pneumonias with adjacent areas of pneumonitis. Correlate for possible Covid 19. 2. Small amount of free fluid in the cul-de-sac is physiologic. 3. Normal appendix. 4. No renal stone or obstruction.
[2021-08-11] MEDS: sodium chloride 0.9% 1,000 ML 999 ML IV (12:02)
[2021-08-11] MEDS: morphine 4 mg/mL SDV 1 mL IVP ×3 (12:02→19:10)
[2021-08-11] MEDS: ondansetron 2 mg/ML SDV 2 mL 4 MG IVP ×2 (12:02→19:08)
[2021-08-11 13:06] LABS: Blood Urine 3+ (Negative); Glucose Urine UA Norm (Normal); Ketones Urine 2+ (Negative); Nitrate Urine Not Tested (Negative); Protein Urine 1+ (Negative); Specific Gravity, Urine 1.025 (1.005-1.030); Urine Appearance Hazy (CLEAR); Urine Color Dark Yellow (Yellow); pH Urine 5 (5-7)
[2021-08-11 13:07] LABS: Add Urine Microscopic? YES; Bilirubin Urine 2+ (Negative); Leukocyte Esterase Urine Negative (Negative); Urobilinogen Urine 4 mg/dL (Negative)
[2021-08-11 13:09] LABS: Bacteria Urine 1+ /hpf; Mucus Urine 1+ /hpf
[2021-08-11 13:10] LABS: Add Urine Culture? No; Hyaline Casts Urine RARE /lpf
[2021-08-11 13:11] LABS: HCG, Serum Qual Negative (Negative)
[2021-08-11 13:12] LABS: Basophils % 0.3 %; Eosinophils % 0.3 %; Hematocrit 33.3 % (37.0-47.0); Hemoglobin 11.4 g/dL (11.5-15.3); Lymphocytes # 0.9 10^3/uL (0.8-4.8); Lymphocytes % 27.9 %; Mean Corpuscular HGB Conc 34.2 g/dL (30.0-36.0); Mean Corpuscular Hemoglobin 29.2 pg (28.0-34.0); Mean Corpuscular Volume 85.4 fl (81-99); Mean Platelet Volume 9.5 fL (7.4-10.4); Monocytes # 0.1 10^3/uL (0.2-0.9); Monocytes % 4.2 %; Neutrophils # 2.21 10^3/uL (1.8-7.7); Nucleated Red Blood Cells % 0 %; Platelet Count 99 10^3/cmm (130-400); Red Cell Distribution Width 13.4 % (12.1-15.1); White Blood Count 3.3 10^3/uL (4.0-10.0)
[2021-08-11 13:13] LABS: Slide Review Slide Review Perform
[2021-08-11 13:18] LABS: Alanine Aminotransferase 20 U/L (0-33); Albumin Level 3.6 g/dL (3.5-5.2); Alkaline Phosphatase 55 IU/L (35-105); Anion Gap 16.3 (5-19); Aspartate Amino Transferase 35 U/L (0-32); Blood Urea Nitrogen 7 mg/dL (6-20); Calcium 7.8 mg/dL (8.5-10.5); Carbon Dioxide 21 mmol/L (22-29); Chloride 100 mmol/L (98-107); Globulin 2.5 g/dL (1.3-4.6); Glucose 88 mg/dL (65-115); Osmolality Calculated 275 mOsm/kg (285-295); Potassium 3.3 mmol/L (3.5-5.1); Sodium 134 mmol/L (136-145); Total Bilirubin 0.2 mg/dL (0.15-1.2); Total Protein 6.1 g/dL (6.6-8.7)
[2021-08-11] MEDS: iohexol 300 mg/mL 100 mL Btl IV ×2 (13:32→17:51)
[2021-08-11 13:47] LABS: Lipase 128 U/L (13-60)
[2021-08-11 15:16] LABS: SARS Covid-2 Antigen Negative (Negative)
--- NOTE | 2021-08-11 17:13 | CTR_ITS ---
PROCEDURE INFORMATION: Exam: CT Chest With Contrast; Diagnostic Exam date and time: 08/11/2021 5:13 PM Age: 41 years old Clinical indication: Abnormal findings; Abnormal radiologic exam of lung or chest; Patient HX: Lll pneumonia; Additional info: Lower lobe pneumonia; Feeling ill TECHNIQUE: Imaging protocol: Diagnostic computed tomography of the chest with contrast. Radiation optimization: All CT scans at this facility use at least one of these dose optimization techniques: automated exposure control; mA and/or kV adjustment per patient size (includes targeted exams where dose is matched to clinical indication); or iterative reconstruction. Contrast material: OMNI 300; Contrast volume: 75 ml; Contrast route: INTRAVENOUS (IV); COMPARISON: CT abdomen pelvis w con* [id number] 08/11/2021 1:30 PM RADIATION DOSE METRICS: Total DLP (mGy-cm): 781.65 FINDINGS: Lungs: Patchy peripheral ground-glass opacities in the bilateral upper lobes and posterior right middle lobe. Dense ground-glass opacities and consolidations in the posterior lower lobes. Pleural spaces: Unremarkable. No pneumothorax. No pleural effusion. Heart: Unremarkable. No cardiomegaly. No pericardial effusion. Aorta: Unremarkable. No aortic aneurysm. Lymph nodes: Subcentimeter mediastinal and hilar lymph nodes are most likely reactive. Diaphragm: Small hiatal hernia. Bones/joints: Unremarkable. No acute fracture. Soft tissues: Unremarkable. CT/CT chest w con* [id number] IMPRESSION: 1. Bilateral multilobar pneumonia, greatest in the lower lobes. This pattern is typical of COVID-19 pneumonia but can be seen with influenza and organizing pneumonia. Radiation Dose CTDIVOL = (mGy): DLP = 781.65 (mGy-cm)
--- NOTE | 2021-08-11 17:25 | PC.NURSE ---
PT REFUSED A SECOND TIME TO HAVE [facility] SEND OUT COVID COLLECTION PERFORED.
[2021-08-11 18:36] LABS: Bilirubin Urine Neg (Negative); Blood Urine 3+ (Negative); Glucose Urine UA Norm (Normal); Ketones Urine 2+ (Negative); Leukocyte Esterase Urine Negative (Negative); Nitrate Urine Negative (Negative); Protein Urine Trace (Negative); RBC Urine 15-25 /hpf (0-2); Squamous Epithelial Cell Urine 0-4 /hpf (0-5); Urine Appearance Clear (CLEAR); Urine Color Yellow (Yellow); Urobilinogen Urine 1 mg/dL (Negative); WBC Urine 0-4 /hpf (0-5); pH Urine 6.5 (5-7)
[2021-08-11 18:37] LABS: Add Urine Culture? Yes; Bacteria Urine TRACE /hpf
--- NOTE | 2021-08-11 18:59 | PC.NURSE ---
REPORT GIVEN TO MALORIE CERNA ASSUMED CARE.
[2021-08-11 19:35] LABS: C Reactive Protein 20.9 mg/L (0.0-4.9)
[2021-08-11 19:41] LABS: Procalcitonin 0.04 ng/mL (0-0.5)
[2021-08-11 19:43] LABS: Influenza A by IFA Negative (Negative); Influenza B by IFA Negative (Negative)
--- NOTE | 2021-08-11 23:47 | P.HP_ITS ---
Providers/Chief Complaint Admitting Physician: Gustabo Duong Primary Care Provider: Akira Conrad MD Chief Complaint: Kidney infection History of Present Illness 41-year-old female with no significant past medical history who is presenting to ER with persistent left flank pain. Patient was initially seen on 08/05/2021 with nausea, vomiting, body aches, bilateral flank pain, and dysuria. During this ER visit patient was noted to have normal UA as well as a CT abdomen/pelvis. She was discharged from ER after which she was seen by her PCP for similar complaint and started on Ciprofloxacin. She was also noting a heavy mensturation for which a transvaginal US was performed which did not show any acute abnormalities. Noted subjective fever, chills, nausea and vomiting prior to arrival. No further dysuria. Noted constipation with no BM for past 10 days.Denied chest pain however did note intermittent mild shortness of breath on exertion. Workup on return to emergency room today showed a WBC of 3.3, hemoglobin 11.4, hematocrit 33.3 and platelet count of 99. Sodium 134, potassium 3.3, chloride 100, bicarb 21, BUN 7 and creatinine of 0.5. AST of 35, ALT of 20 and alkaline phosphatase 55. CRP of 20.9 and lipase of 128. Procalcitonin 0.04. Urinalysis showed 2+ ketones, 3+ blood, negative leukocyte esterase or nitrates. Influenza A/B and Covid [address] ag were negative[address] Repeat CT of abdomen pelvis with contrast showed interval development of bilateral lower lobe pneumonias with adjacent area of pneumonitis. No evidence of intra abdominal infections. CT chest was then performed which showed bilateral multilobar pneumonia, greatest in the lower lobes. Review of Systems General: Reports: 10 or more systems reviewed and unremarkable except in HPI and below Medications/Allergies Home Medications Medication Instructions Recorded Confirmed Last Taken Type hydrocodone-acetaminophen 1 tab PO Q6H PRN #14 tab 08/05/21 08/11/21 08/10/21 Rx ondansetron 4 mg PO Q6H PRN #14 tab 08/05/21 08/11/21 08/11/21 06:00 Rx ciprofloxacin HCl [Cipro] 500 mg PO BID 08/11/21 08/11/21 08/11/21 06:00 History ibuprofen 800 mg PO Q8H PRN 08/11/21 08/11/21 Unknown History oxycodone-acetaminophen [Percocet] 1 tab PO Q6H PRN 08/11/21 08/11/21 Unknown History phenazopyridine [Azo Urinary Pain 199 mg PO PRN 08/11/21 08/11/21 08/11/21 History Relief] phentermine 37.5 mg PO DAILY 08/11/21 08/11/21 Unknown History Allergies Allergy/AdvReac Type Severity Reaction Status Date / Time Sulfa (Sulfonamide Allergy ALGY-Rash Verified 08/11/21 13:26 Antibiotics) Vitals/I&O/Wt Last Vital Signs Temp 98.0 F 08/11/21 11:09 Pulse 74 08/11/21 15:02 Resp 20 H 08/11/21 19:10 BP 121/68 08/11/21 15:02 Pulse Ox 92 08/11/21 16:06 08/11/21 08/11/21 08/12/21 14:59 22:59 06:59 Intake Total 1000 / 1000 Balance 1000 / 1000 Weight last 48 hrs Weight 103.419 kg Physical Exam Narrative: EXAM NARRATIVE: General : Alert, Awake oriented x 3, NAD HEENT: Grossly Unremarkable CVS: RRR Chest: Non-labored respiration Abd: Soft, NT,ND Ext; No edema Data : 08/11/21 11:42 08/11/21 11:42 A&P Assessment and plan (1) Multifocal pneumonia: Noted Bilaterally on CT chest Likely viral - highly suspicious for COVID-19 Possible aspiration component given vomiting. COVID-19 PCR sent Supplemental o2 as needed Empirically started on Zosyn Blood culture x 2 Repeat Labs in am De-escalate abx based on clinical course and cultures Status: Acute (2) Bicytopenia: Leukopenia - WBC 3.3 Thrombocytopenia - 99 Possible due to viral infectious process Repeat CBC in am F/u on covid -19 PCR Status: Acute (3) Hypokalemia: KCL 20 MEQ PO x 1 Repeat BMP in am Status: Acute (4) Constipation: Colace 100 mg PO BID Miralax daily PRN Status: Acute (5) DVT prophylaxis: Lovenox 40 mg Sq daily ( monitor for plt drop ) Status: Acute Attestations Medical Necessity Statement*: Anticipate less than 2 midnight stay in hospital for eval and treatment Time Spent in Patient Care: Greater than 35 minutes (>than 50% of time spent in counselling and/or direct pt care on unit) . 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
[2021-08-12] VITALS (7 sets, daily range): BP systolic 92–106; BP diastolic 61–69; PULSE 67–78; RESP 16–18; TEMP 36.6–37.1; O2SAT 90–93
[2021-08-12] MEDS: enoxaparin 40 mg/0.4 mL Syringe SUBCUT (01:21)
[2021-08-12] MEDS: sodium chloride 0.9% 1,000 ML 75 ML IV (01:21)
[2021-08-12] MEDS: HYDROcodone-acetaminophen 5-325 mg Tablet 1 TAB PO ×4 (01:21→21:52)
[2021-08-12] MEDS: piperacillin-tazobactam 3.375 GM in sodium chloride 0.9% (plus) 50 ML IV ×3 (02:53→18:08)
[2021-08-12 07:32] LABS: Basophils % 0.3 %; Hematocrit 35.7 % (37.0-47.0); Hemoglobin 11.8 g/dL (11.5-15.3); Lymphocytes # 1.3 10^3/uL (0.8-4.8); Lymphocytes % 39.4 %; Mean Corpuscular HGB Conc 33.1 g/dL (30.0-36.0); Mean Corpuscular Hemoglobin 29.1 pg (28.0-34.0); Mean Corpuscular Volume 88.1 fl (81-99); Mean Platelet Volume 9.8 fL (7.4-10.4); Monocytes # 0.2 10^3/uL (0.2-0.9); Monocytes % 6.9 %; Neutrophils % 53.1 %; Nucleated Red Blood Cells % 0 %; Platelet Count 107 10^3/cmm (130-400); Red Blood Count 4.05 10^6/uL (4.1-5.3); Red Cell Distribution Width 13.4 % (12.1-15.1); White Blood Count 3.2 10^3/uL (4.0-10.0)
[2021-08-12 08:28] LABS: Alanine Aminotransferase 18 U/L (0-33); Albumin Level 3.5 g/dL (3.5-5.2); Alkaline Phosphatase 55 IU/L (35-105); Anion Gap 19.2 (5-19); Aspartate Amino Transferase 34 U/L (0-32); Blood Urea Nitrogen 7 mg/dL (6-20); Calcium 7.8 mg/dL (8.5-10.5); Carbon Dioxide 20 mmol/L (22-29); Chloride 99 mmol/L (98-107); Globulin 2.7 g/dL (1.3-4.6); Glucose 93 mg/dL (65-115); Osmolality Calculated 278 mOsm/kg (285-295); Potassium 3.2 mmol/L (3.5-5.1); Sodium 135 mmol/L (136-145); Total Bilirubin 0.3 mg/dL (0.15-1.2); Total Protein 6.2 g/dL (6.6-8.7)
[2021-08-12 08:32] LABS: Procalcitonin 0.04 ng/mL (0-0.5)
[2021-08-12] MEDS: polyethylene glycol 3350 Pkt 17 gm PO ×2 (11:50→18:07)
--- NOTE | 2021-08-12 13:32 | PM.PN ---
Subjective Subjective: Interval history: She is overall doing little better. No further vomiting. Ate some breakfast today. Reports has not had a bowel movement in 10 days. Mildly short of breath. Vitals/I&O/Wt Last Vital Signs Temp 98.3 F 08/12/21 12:05 Pulse 70 08/12/21 12:05 Resp 18 08/12/21 12:05 BP 104/69 08/12/21 12:05 Pulse Ox 90 08/12/21 12:05 08/11/21 08/12/21 08/12/21 22:59 06:59 14:59 Intake Total 360 / 1360 720 / 2080 170 / 170 Balance 360 / 1360 720 / 2080 170 / 170 Weight last 48 hrs Weight 103.419 kg Physical Exam Const: COMMON NORMALS: no acute distress and patient oriented x3 HENMT: COMMON NORMALS: oropharynx normal Neck/C-Spine: COMMON NORMALS: no JVD Resp: COMMON NORMALS: normal respiratory effort and clear to auscultation bilaterally AUSCULTATION: clear to auscultation bilaterally Cardio: COMMON NORMALS: no JVD, regular rhythm, S1 normal heart sound present, S2 normal heart sound present and No murmurs present (Cardio) RHYTHM: regular rhythm HEART SOUNDS: S1 normal heart sound present and S2 normal heart sound present GI: COMMON NORMALS: Normal to inspection, nondistended, normoactive bowel sounds present, Soft to palpation and non-tender PALPATION: Yes Soft to palpation Extremity: COMMON NORMALS: no joint enlargement and no pedal edema Neuro: COMMON NORMALS: patient oriented x3 and moves all extremities Skin: COMMON NORMALS: no rashes or lesions noted GENERAL SKIN EXAM: no rashes or lesions noted Data : 08/12/21 06:31 08/12/21 06:31 Micro: Microbiology 08/12/21 06:38 Blood Culture - Preliminary Blood SPECIMEN COLLECTED 08/12/21 06:31 Blood Culture - Preliminary Blood SPECIMEN COLLECTED A&P Assessment and plan (1) Multifocal pneumonia: Possible aspiration pneumonia after vomiting. Possible COVID-19. She is now requiring 1 L of oxygen and on that is saturating 90%. At this time requires closer monitoring to see if condition continues to deteriorate and in fact severe COVID-19 would warrant treatment. Continue Zosyn for possible aspiration pneumonia. Status: Acute (2) Bicytopenia: Persists Leukopenia - WBC 3.3 Thrombocytopenia - 99 Possible due to viral infectious process Repeat CBC in am F/u on covid -19 PCR Status: Acute (3) Hypokalemia: Additional replacement. Check magnesium. Status: Acute (4) Constipation: Still no BM. Dulcolax suppository. Scheduled MiraLAX. Status: Acute (5) DVT prophylaxis: Lovenox 40 mg Sq daily ( monitor for plt drop ) Status: Acute Attestations Medical Necessity Statement*: Continue hospitalization for assessment of new hypoxia, multifocal pneumonia after vomiting after treatment for UTI, possible COVID-19. Coding Level of Care Code Acute Ssn/Ssbn Assistant Navigator for g Fwd Diagnoses Multifocal pneumonia J18.9 Bicytopenia D75.89 Hypokalemia E87.6 Constipation K59.00 DVT prophylaxis Z29.9
[2021-08-12] MEDS: lidocaine 1% 5 ML in potassium chloride premix 100 ML 50 ML IV (13:54)
[2021-08-12 15:15] LABS: Magnesium 1.9 mg/dL (1.7-2.3)
[2021-08-12] MEDS: acetaminophen 325 mg Tablet 650 MG PO (18:16)
[2021-08-13] MEDS: ondansetron 2 mg/ML SDV 2 mL 4 MG IVP ×2 (00:31→08:58)
[2021-08-13] MEDS: enoxaparin 40 mg/0.4 mL Syringe SUBCUT (02:24)
[2021-08-13] MEDS: piperacillin-tazobactam 3.375 GM in sodium chloride 0.9% (plus) 50 ML IV ×3 (02:24→17:15)
[2021-08-13 04:00] VITALS: BP 104/69; PULSE 70; RESP 16; TEMP 37.2; O2SAT 91
[2021-08-13] MEDS: HYDROcodone-acetaminophen 5-325 mg Tablet 1 TAB PO ×3 (04:16→23:40)
[2021-08-13 07:13] LABS: Eosinophils % 0.3 %; Hematocrit 33.6 % (37.0-47.0); Hemoglobin 11.6 g/dL (11.5-15.3); Lymphocytes # 1.1 10^3/uL (0.8-4.8); Lymphocytes % 33.8 %; Mean Corpuscular HGB Conc 34.5 g/dL (30.0-36.0); Mean Platelet Volume 9.3 fL (7.4-10.4); Monocytes # 0.3 10^3/uL (0.2-0.9); Monocytes % 8.8 %; Neutrophils % 56.8 %; Nucleated Red Blood Cells % 0 %; Platelet Count 113 10^3/cmm (130-400); Red Cell Distribution Width 13.3 % (12.1-15.1); White Blood Count 3.2 10^3/uL (4.0-10.0)
[2021-08-13 07:36] LABS: Alanine Aminotransferase 20 U/L (0-33); Albumin Level 3.4 g/dL (3.5-5.2); Alkaline Phosphatase 58 IU/L (35-105); Anion Gap 13.4 (5-19); Aspartate Amino Transferase 36 U/L (0-32); Blood Urea Nitrogen 6 mg/dL (6-20); Calcium 8.4 mg/dL (8.5-10.5); Carbon Dioxide 24 mmol/L (22-29); Chloride 103 mmol/L (98-107); Globulin 2.8 g/dL (1.3-4.6); Glomerular Filtration Rate 175.9 mL/min (90-130); Glucose 96 mg/dL (65-115); Osmolality Calculated 281 mOsm/kg (285-295); Potassium 3.4 mmol/L (3.5-5.1); Sodium 137 mmol/L (136-145); Total Bilirubin 0.3 mg/dL (0.15-1.2); Total Protein 6.2 g/dL (6.6-8.7)
[2021-08-13 08:31] VITALS: BP 105/64; PULSE 66; RESP 15; TEMP 37; O2SAT 92
[2021-08-13] MEDS: lidocaine 1% 5 ML in potassium chloride premix 100 ML 50 ML IV (08:49)
[2021-08-13] MEDS: polyethylene glycol 3350 Pkt 17 gm PO (08:50)
--- NOTE | 2021-08-13 10:08 | PC.NURSE ---
Patient remains constipated, reports last BM 11 days ago, states, I cannot take suppositories. when asked about other medications patient reports only willing to try miralax at this time.
[2021-08-13 12:46] VITALS: BP 112/75; PULSE 73; RESP 15; TEMP 36.7; O2SAT 92
--- NOTE | 2021-08-13 14:51 | PC.NURSE ---
Patient resting with eyes closed awakened and reports to this nurse, I am feeling so much better.
[2021-08-13 16:31] VITALS: BP 90/59; PULSE 74; RESP 15; TEMP 37.3; O2SAT 93
--- NOTE | 2021-08-13 16:39 | P.PN_ITS ---
Subjective Subjective: Interval history: This morning she is having a headache. Still nausea. No no bowel movement. She declined suppository yesterday. Discussed with her additional measures, mag citrate, possibly enema. She is agreeable. Persistently requiring 1 L of oxygen. Reports gets very dyspneic with exertion. With symptoms concerning for COVID-19, discussed starting empiric treatment given persistent need for supplemental oxygen. She is agreeable. We will be following up PCR results. Vitals/I&O/Wt Last Vital Signs Temp 99.2 F 08/13/21 16:31 Pulse 74 08/13/21 16:31 Resp 15 08/13/21 16:31 BP 90/59 08/13/21 16:31 Pulse Ox 93 08/13/21 16:31 08/13/21 08/13/21 08/13/21 06:59 14:59 22:59 Intake Total 635 / 635 50 / 685 Output Total / Balance 620 / 620 50 / 670 Physical Exam Const: COMMON NORMALS: no acute distress and patient oriented x3 GENERAL APPEARANCE: not comfortable HENMT: COMMON NORMALS: oropharynx normal Neck/C-Spine: COMMON NORMALS: no JVD Resp: COMMON NORMALS: normal respiratory effort and clear to auscultation bilaterally AUSCULTATION: clear to auscultation bilaterally Cardio: COMMON NORMALS: no JVD, regular rhythm, S1 normal heart sound present, S2 normal heart sound present and No murmurs present (Cardio) RHYTHM: regular rhythm HEART SOUNDS: S1 normal heart sound present and S2 normal heart sound present GI: COMMON NORMALS: Normal to inspection, nondistended, normoactive bowel sounds present, Soft to palpation and non-tender PALPATION: Yes Soft to palpation Extremity: COMMON NORMALS: no joint enlargement and no pedal edema Neuro: COMMON NORMALS: patient oriented x3 and moves all extremities Skin: COMMON NORMALS: no rashes or lesions noted GENERAL SKIN EXAM: no rashes or lesions noted Data : 08/13/21 06:43 08/13/21 06:43 Micro: Microbiology 08/11/21 18:08 Urine Culture - Final Urine,Clean Catch 08/12/21 06:38 Blood Culture - Preliminary Blood NEGATIVE TO DATE 08/12/21 06:31 Blood Culture - Preliminary Blood NEGATIVE TO DATE A&P Assessment and plan (1) Multifocal pneumonia: With suspicion COVID-19, empirically after discussion with her started on treatment given ongoing symptoms, persistent hypoxia. COVID-19 PCR returns positive this evening, however, prior nursing reports she declines remdesivir. Possible aspiration pneumonia after vomiting. Empirically continue Zosyn for now. She is now requiring 1 L of oxygen and on that is saturating 90%. Reports dyspnea on exertion. Severe fatigability. Continue Lovenox prophylaxis for DVT. Check D-dimer. Antitussives, supportive care, I-S, flutter valve. Status: Acute (2) Bicytopenia: Persists. Likely secondary to COVID-19. Recheck blood counts. Status: Acute (3) Hypokalemia: Additional replacement. Check magnesium. Status: Acute (4) Constipation: Still no BM. Declined Dulcolax suppository. Continue MiraLAX. Add mag citrate. Consider enema. Status: Acute (5) DVT prophylaxis: Lovenox 40 mg Sq daily ( monitor for plt drop ) Status: Acute Additional A&P Information Reports history of hemorrhoids Attestations Medical Necessity Statement*: Admission of over 2 midnights is required for assessment management of severe COVID-19, new oxygen requirement. Coding Level of Care Code Acute Visual Lead for Dank Fwd Exam Comprehensive Diagnoses Multifocal pneumonia J18.9 Bicytopenia D75.89 Hypokalemia E87.6 Constipation K59.00 DVT prophylaxis Z29.9
[2021-08-13] MEDS: dexamethasone 10 mg/mL INJ 6 MG IVP (16:50)
[2021-08-13 17:03] LABS: Quest SARS-CoV-2 RNA DETECTED (NOT DETECTED)
[2021-08-13] MEDS: pantoprazole DR 40 mg Tablet PO (17:15)
--- NOTE | 2021-08-13 19:34 | PC.NURSE ---
Patient reports having a BM but this nurse did not witness, patient then refused mag citrate and miralax after. night nurse made aware.
[2021-08-13 19:49] VITALS: PULSE 82; RESP 18; O2SAT 93
[2021-08-13 20:00] VITALS: BP 109/73; PULSE 68; RESP 18; TEMP 36.7; O2SAT 91
[2021-08-14] VITALS (8 sets, daily range): BP systolic 99–106; BP diastolic 63–68; PULSE 62–96; RESP 16–18; TEMP 36.4–36.9; O2SAT 90–93
[2021-08-14] MEDS: enoxaparin 40 mg/0.4 mL Syringe SUBCUT (01:45)
[2021-08-14] MEDS: piperacillin-tazobactam 3.375 GM in sodium chloride 0.9% (plus) 50 ML IV ×2 (01:46→10:57)
[2021-08-14 07:03] LABS: Hematocrit 37.5 % (37.0-47.0); Hemoglobin 12.4 g/dL (11.5-15.3); Lymphocytes # 0.6 10^3/uL (0.8-4.8); Lymphocytes % 41.3 %; Mean Corpuscular HGB Conc 33.1 g/dL (30.0-36.0); Mean Corpuscular Hemoglobin 28.9 pg (28.0-34.0); Mean Corpuscular Volume 87.4 fl (81-99); Mean Platelet Volume 9.9 fL (7.4-10.4); Monocytes # 0.1 10^3/uL (0.2-0.9); Neutrophils % 49.1 %; Nucleated Red Blood Cells % 0 %; Red Blood Count 4.29 10^6/uL (4.1-5.3); Red Cell Distribution Width 13.3 % (12.1-15.1); White Blood Count 1.6 10^3/uL (4.0-10.0)
[2021-08-14 07:15] LABS: D Dimer 0.58 ug/mIFEU (0-0.59)
[2021-08-14 07:20] LABS: Alanine Aminotransferase 27 U/L (0-33); Albumin Level 3.9 g/dL (3.5-5.2); Alkaline Phosphatase 67 IU/L (35-105); Anion Gap 15.7 (5-19); Aspartate Amino Transferase 38 U/L (0-32); Blood Urea Nitrogen 7 mg/dL (6-20); C Reactive Protein 16.8 mg/L (0.0-4.9); Calcium 8.7 mg/dL (8.5-10.5); Carbon Dioxide 23 mmol/L (22-29); Chloride 103 mmol/L (98-107); Globulin 2.5 g/dL (1.3-4.6); Glucose 119 mg/dL (65-115); Magnesium 2.2 mg/dL (1.7-2.3); Osmolality Calculated 285 mOsm/kg (285-295); Potassium 3.7 mmol/L (3.5-5.1); Sodium 138 mmol/L (136-145); Total Bilirubin 0.4 mg/dL (0.15-1.2); Total Protein 6.4 g/dL (6.6-8.7)
[2021-08-14 08:07] LABS: Platelet Count 150 10^3/cmm (130-400); Slide Review Slide Review Perform
[2021-08-14 08:08] LABS: Neutrophils # 0.76 10^3/uL (1.8-7.7)
[2021-08-14] MEDS: polyethylene glycol 3350 Pkt 17 gm PO (09:26)
[2021-08-14] MEDS: levoFLOXacin 500 mg Tablet PO (12:07)
[2021-08-14 12:35] LABS: Iron 88 ug/dL (37-145); Total Iron Binding Capacity 266 mcg/dl; Unsaturated Iron Binding 178 ug/dL (112-347)
[2021-08-14 12:56] LABS: Thyroid Stimulating Hormone 0.41 uIU/mL (0.27-4.20)
[2021-08-14] MEDS: remdesivir 200 MG in sodium chloride 0.9% (100 ml) 60 ML 100 MG IV (15:21)
--- NOTE | 2021-08-14 15:41 | PM.PN ---
Subjective Subjective: Interval history: Hospital course, labs appreciated. Today morning on examination patient lying comfortably in bed. Awake alert. States feeling better than yesterday. Requiring 1 to 2 L of oxygen supplementation to maintain saturation over 92%. Yesterday patient declined remdesivir treatment for COVID-19. We had a long discussion regarding benefits of early remdesivir treatment for patients with COVID-19 requiring oxygen for moderate to severe COVID-19 pneumonia. Patient had questions regarding other modalities of treatment for COVID-19 including plasma therapy and ivermectin. We discussed that for now only evidence-based treatment is for remdesivir for patient requiring oxygen. We also discussed if she was not on oxygen supplementation we could have tried monoclonal antibodies. Patient verbalized understanding and states she will think about the treatment plan and discuss with her family further. Patient's treatment plan also discussed in detail with Mr. Burris. Vitals/I&O/Wt Last Vital Signs Temp 97.6 F 08/14/21 12:09 Pulse 88 08/14/21 12:09 Resp 18 08/14/21 12:09 BP 106/65 08/14/21 12:09 Pulse Ox 93 08/14/21 12:09 08/14/21 08/14/21 08/14/21 06:59 14:59 22:59 Intake Total 50 / 1505 480 / 480 Balance 50 / 1490 480 / 480 Physical Exam Narrative: EXAM NARRATIVE: General: No acute distress, AO x3 HEENT: PERRLA, pupils bilaterally equal and reactive Chest: Normal vesicular breath sounds, occasional rhonchi, equal good air entry bilaterally CVS: S1-S2 regular, no murmurs, no tachycardia, no gallops, no rubs Abdomen: Soft, nontender, no organomegaly, bowel sounds present Neuro: No focal deficits, no facial deformity, AO x3, power 5/5 in all limbs Data : 08/14/21 06:32 08/14/21 06:32 A&P Assessment and plan (1) Multifocal pneumonia: Status: Acute (2) Bicytopenia: Persists with neutropenia. Likely secondary to COVID-19. Recheck blood counts. Status: Acute (3) Hypokalemia: Additional replacement. Check magnesium. Status: Acute (4) Constipation: Still no BM. Declined Dulcolax suppository. Continue MiraLAX. Add mag citrate. Consider enema. Status: Acute (5) DVT prophylaxis: Lovenox 40 mg Sq daily ( monitor for plt drop ) Status: Acute Additional A&P Information Hypoxia secondary to COVID-19 pneumonia: Mild to moderate disease. Oxygen supplementation keeping saturation over 88%. Dexamethasone 6 mg daily. Remdesivir to finish a 3 to 5-day course. Patient is agreeable to treatment after long counseling and discussion. Vitamin C, zinc. Advair, Spiriva. Pulmonary toilet with incentive spirometry flutter valve. We will monitor inflammatory markers including CRP, D-dimer every 48 hourly. If getting elevated will dose Actemra. Patient was made aware of the same and he has given verbal consent. CT results appreciated. D-dimer negative. For now continue with Lovenox at prophylactic dose. Will monitor for anemia or blood loss. Pro-Chad negative. Check sputum culture. Low suspicion of bacterial pneumonia for now. Stop Zosyn. Start patient on Levaquin 500 mg daily for next 5 days. Blood cultures urine cultures so far negative. Given hypoxia will try to keep patient as negative as possible. Patient clinically euvolemic. Strict input output charting, daily weights. Reports history of hemorrhoids Full code. Regular diet. Lovenox for DVT prophylaxis. Protonix for PUD prophylaxis. Attestations Medical Necessity Statement*: Requires further hospitalization for management of hypoxia secondary to COVID-19 pneumonia Time Spent in Patient Care: Greater than 35 minutes (>than 50% of time spent in counselling and/or direct pt care on unit). 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
[2021-08-14] MEDS: pantoprazole DR 40 mg Tablet PO (17:39)
[2021-08-14] MEDS: dexamethasone 10 mg/mL INJ 6 MG IVP (17:39)
[2021-08-14] MEDS: ascorbic acid 500 mg Tablet PO (17:39)
[2021-08-14] MEDS: benzonatate 100 mg Capsule PO (22:10)
[2021-08-15] VITALS (8 sets, daily range): BP systolic 94–109; BP diastolic 59–72; PULSE 65–83; RESP 15–20; TEMP 36.6–37.2; O2SAT 91–95
[2021-08-15] MEDS: levoFLOXacin 500 mg Tablet PO (06:42)
[2021-08-15 06:50] LABS: Hematocrit 35.8 % (37.0-47.0); Hemoglobin 11.9 g/dL (11.5-15.3); Lymphocytes # 0.8 10^3/uL (0.8-4.8); Lymphocytes % 23.6 %; Mean Corpuscular HGB Conc 33.2 g/dL (30.0-36.0); Mean Corpuscular Hemoglobin 29.2 pg (28.0-34.0); Mean Corpuscular Volume 87.7 fl (81-99); Mean Platelet Volume 9.5 fL (7.4-10.4); Monocytes # 0.3 10^3/uL (0.2-0.9); Monocytes % 9.4 %; Neutrophils # 2.34 10^3/uL (1.8-7.7); Neutrophils % 66.4 %; Nucleated Red Blood Cells % 0 %; Platelet Count 180 10^3/cmm (130-400); Red Blood Count 4.08 10^6/uL (4.1-5.3); Red Cell Distribution Width 13.3 % (12.1-15.1); White Blood Count 3.5 10^3/uL (4.0-10.0)
[2021-08-15 07:17] LABS: Alanine Aminotransferase 39 U/L (0-33); Albumin Level 3.9 g/dL (3.5-5.2); Alkaline Phosphatase 60 IU/L (35-105); Aspartate Amino Transferase 46 U/L (0-32); Blood Urea Nitrogen 12 mg/dL (6-20); C Reactive Protein 6.5 mg/L (0.0-4.9); Calcium 8.9 mg/dL (8.5-10.5); Carbon Dioxide 24 mmol/L (22-29); Chloride 107 mmol/L (98-107); Globulin 2.4 g/dL (1.3-4.6); Glucose 106 mg/dL (65-115); Osmolality Calculated 292 mOsm/kg (285-295); Sodium 141 mmol/L (136-145); Total Bilirubin 0.3 mg/dL (0.15-1.2); Total Protein 6.3 g/dL (6.6-8.7)
[2021-08-15] MEDS: zinc gluconate 50 mg Tablet PO (08:33)
[2021-08-15] MEDS: benzonatate 100 mg Capsule PO ×2 (08:33→21:33)
[2021-08-15] MEDS: ascorbic acid 500 mg Tablet PO ×2 (08:33→17:16)
[2021-08-15 08:46] LABS: Slide Review Slide Review Perform
--- NOTE | 2021-08-15 13:16 | PM.PN ---
Subjective Subjective: Interval history: No acute events overnight. Patient has remained hemodynamically stable and afebrile. Continues to remain on 1 L oxygen supplementation saturating 90% in morning increasing up to 94% during the day. Patient agreed for remdesivir yesterday. States feeling better. Appetite better. Vitals/I&O/Wt Last Vital Signs Temp 97.8 F 08/15/21 12:00 Pulse 75 08/15/21 12:00 Resp 18 08/15/21 12:00 BP 109/70 08/15/21 12:00 Pulse Ox 94 08/15/21 12:00 08/14/21 08/15/21 08/15/21 22:59 06:59 14:59 Intake Total 590 / 1070 Balance 590 / 1070 Physical Exam Narrative: EXAM NARRATIVE: General: No acute distress, AO x3 HEENT: PERRLA, pupils bilaterally equal and reactive Chest: Normal vesicular breath sounds, occasional rhonchi, equal good air entry bilaterally CVS: S1-S2 regular, no murmurs, no tachycardia, no gallops, no rubs Abdomen: Soft, nontender, no organomegaly, bowel sounds present Neuro: No focal deficits, no facial deformity, AO x3, power 5/5 in all limbs Data : 08/15/21 05:54 08/15/21 05:54 A&P Assessment and plan (1) Multifocal pneumonia: Status: Acute (2) Bicytopenia: Persists with neutropenia. Likely secondary to COVID-19. Recheck blood counts. Status: Acute (3) Hypokalemia: Additional replacement. Check magnesium. Status: Acute (4) Constipation: Still no BM. Declined Dulcolax suppository. Continue MiraLAX. Add mag citrate. Consider enema. Status: Acute (5) DVT prophylaxis: Lovenox 40 mg Sq daily ( monitor for plt drop ) Status: Acute Additional A&P Information Hypoxia secondary to COVID-19 pneumonia: Mild to moderate disease. Oxygen supplementation keeping saturation over 88%. Dexamethasone 6 mg daily. Remdesivir to finish a 3 to 5-day course. Patient is agreeable to treatment after long counseling and discussion. Vitamin C, zinc. Advair, Spiriva. Pulmonary toilet with incentive spirometry flutter valve. We will monitor inflammatory markers including CRP, D-dimer every [address] down[address] results appreciated. D-dimer negative. For now continue with Lovenox at prophylactic dose. Will monitor for anemia or blood loss. Pro-Chad negative. Check sputum culture. Low suspicion of bacterial pneumonia for now. Stop Zosyn. Continue with Levaquin 500 mg daily for next 5 days. Blood cultures urine cultures so far negative. Given hypoxia will try to keep patient as negative as possible. Patient clinically euvolemic. Strict input output charting, daily weights. Reports history of hemorrhoids Full code. Regular diet. Lovenox for DVT prophylaxis. Protonix for PUD prophylaxis. Plan for day: Continue with remdesivir, dexamethasone, aggressive pulmonary toilet. Wean off oxygen keeping saturation over 88 to 90%. Attestations Medical Necessity Statement*: Requires further hospitalization for management of mild hypoxia secondary COVID-19 pneumonia requiring IV remdesivir Time Spent in Patient Care: Greater than 35 minutes (>than 50% of time spent in counselling and/or direct pt care on unit). Coding Level of Care Code Acute Retail Marketing Executive for [facility] Fw Diagnoses Multifocal pneumonia J18.9 Bicytopenia D75.89 Hypokalemia E87.6 Constipation K59.00 DVT prophylaxis Z29.9
[2021-08-15] MEDS: remdesivir 100 MG in sodium chloride 0.9% (100 ml) 80 ML IV (17:16)
[2021-08-15] MEDS: dexamethasone 10 mg/mL INJ 6 MG IVP (17:16)
[2021-08-15] MEDS: pantoprazole DR 40 mg Tablet PO (17:16)
[2021-08-16] VITALS (9 sets, daily range): BP systolic 101–121; BP diastolic 63–79; PULSE 56–78; RESP 15–19; TEMP 36.6–37.1; O2SAT 92–96
[2021-08-16] MEDS: enoxaparin 40 mg/0.4 mL Syringe SUBCUT (01:02)
[2021-08-16] MEDS: lanolin oint 7 gm 1 APPLIC TOPICAL (01:08)
[2021-08-16] MEDS: levoFLOXacin 500 mg Tablet PO (05:37)
[2021-08-16] MEDS: polyethylene glycol 3350 Pkt 17 gm PO (10:07)
[2021-08-16] MEDS: zinc gluconate 50 mg Tablet PO (10:07)
[2021-08-16] MEDS: benzonatate 100 mg Capsule PO ×2 (10:07→14:49)
[2021-08-16] MEDS: ascorbic acid 500 mg Tablet PO ×2 (10:07→17:44)
--- NOTE | 2021-08-16 12:31 | PM.PN ---
Subjective Subjective: Interval history: No acute events overnight. Denies any nausea, vomiting, headache. Has been on room air since yesterday evening. Working well with [employer] and [employer]. In good mood. Appetite better. Vitals/I&O/Wt Last Vital Signs Temp 98 F 08/16/21 12:00 Pulse 78 08/16/21 12:00 Resp 16 08/16/21 12:00 BP 121/79 08/16/21 12:00 Pulse Ox 94 08/16/21 12:00 08/15/21 08/16/21 08/16/21 22:59 06:59 14:59 Intake Total 80 / 80 120 / 200 240 / 240 Balance 80 / 80 120 / 200 240 / 240 Physical Exam Narrative: EXAM NARRATIVE: General: No acute distress, AO x3 HEENT: PERRLA, pupils bilaterally equal and reactive Chest: Normal vesicular breath sounds, occasional rhonchi, equal good air entry bilaterally CVS: S1-S2 regular, no murmurs, no tachycardia, no gallops, no rubs Abdomen: Soft, nontender, no organomegaly, bowel sounds present Neuro: No focal deficits, no facial deformity, AO x3, power 5/5 in all limbs Data : 08/15/21 05:54 08/15/21 05:54 A&P Assessment and plan (1) Multifocal pneumonia: Status: Acute (2) Bicytopenia: Persists with neutropenia. Likely secondary to COVID-19. Recheck blood counts. Status: Acute (3) Hypokalemia: Additional replacement. Check magnesium. Status: Acute (4) Constipation: Still no BM. Declined Dulcolax suppository. Continue MiraLAX. Add mag citrate. Consider enema. Status: Acute (5) DVT prophylaxis: Lovenox 40 mg Sq daily ( monitor for plt drop ) Status: Acute Additional A&P Information Hypoxia secondary to COVID-19 pneumonia: Mild to moderate disease. Oxygen supplementation keeping saturation over 88%. Dexamethasone 6 mg daily. Remdesivir to finish a 3 day course the patient remains on room air on both rest and exertion tomorrow. Vitamin C, zinc. Advair, Spiriva. Pulmonary toilet with incentive spirometry flutter valve. We will monitor inflammatory markers including CRP, D-dimer every 48 hourly. CRP trending down. CT results appreciated. D-dimer negative. For now continue with Lovenox at prophylactic dose. Will monitor for anemia or blood loss. Pro-Chad negative. Check sputum culture. Low suspicion of bacterial pneumonia for now.Continue with Levaquin 500 mg daily for next 5 days. Blood cultures urine cultures so far negative. Given hypoxia will try to keep patient as negative as possible. Patient clinically euvolemic. Strict input output charting, daily weights. Reports history of hemorrhoids Full code. Regular diet. Lovenox for DVT prophylaxis. Protonix for PUD prophylaxis. Plan for day: Continue with remdesivir and dexamethasone, aggressive pulmonary toilet. Discharge planning: Patient remains on room air plan to discharge tomorrow after home O2 evaluation on exertion. If patient requiring oxygen tomorrow on exertion will continue remdesivir to finish a 5-day course. Attestations Medical Necessity Statement*: Requires further hospitalization for management of hypoxia secondary COVID-19 pneumonia Time Spent in Patient Care: Greater than 35 minutes (>than 50% of time spent in counselling and/or direct pt care on unit). Coding Level of Care Code Acute Can Filler for [facility] Diagnoses Multifocal pneumonia J18.9 Bicytopenia D75.89 Hypokalemia E87.6 Constipation K59.00 DVT prophylaxis Z29.9
[2021-08-16] MEDS: dexamethasone 10 mg/mL INJ 6 MG IVP (17:38)
[2021-08-16] MEDS: remdesivir 100 MG in sodium chloride 0.9% (100 ml) 80 ML IV (17:44)
[2021-08-16] MEDS: pantoprazole DR 40 mg Tablet PO (17:44)
[2021-08-17] VITALS (7 sets, daily range): BP systolic 92–115; BP diastolic 57–71; PULSE 56–65; RESP 16–18; TEMP 36.8–36.9; O2SAT 92–97
[2021-08-17] MEDS: enoxaparin 40 mg/0.4 mL Syringe SUBCUT (00:56)
[2021-08-17] MEDS: levoFLOXacin 500 mg Tablet PO (06:13)
[2021-08-17 06:53] LABS: Alanine Aminotransferase 61 U/L (0-33); Albumin Level 3.8 g/dL (3.5-5.2); Alkaline Phosphatase 51 IU/L (35-105); Aspartate Amino Transferase 45 U/L (0-32); Blood Urea Nitrogen 11 mg/dL (6-20); Calcium 8.6 mg/dL (8.5-10.5); Carbon Dioxide 21 mmol/L (22-29); Chloride 106 mmol/L (98-107); Globulin 2.5 g/dL (1.3-4.6); Glucose 107 mg/dL (65-115); Osmolality Calculated 288 mOsm/kg (285-295); Sodium 139 mmol/L (136-145); Total Bilirubin 0.2 mg/dL (0.15-1.2); Total Protein 6.3 g/dL (6.6-8.7)
[2021-08-17 06:58] LABS: C Reactive Protein 2.5 mg/L (0.0-4.9)
[2021-08-17 07:14] LABS: Hematocrit 34.6 % (37.0-47.0); Hemoglobin 11.4 g/dL (11.5-15.3); Lymphocytes # 1.1 10^3/uL (0.8-4.8); Lymphocytes % 20.3 %; Mean Corpuscular HGB Conc 32.9 g/dL (30.0-36.0); Mean Corpuscular Hemoglobin 29.2 pg (28.0-34.0); Mean Corpuscular Volume 88.5 fl (81-99); Mean Platelet Volume 9.3 fL (7.4-10.4); Monocytes # 0.6 10^3/uL (0.2-0.9); Monocytes % 11.1 %; Neutrophils # 3.65 10^3/uL (1.8-7.7); Neutrophils % 67.3 %; Nucleated Red Blood Cells % 0 %; Platelet Count 232 10^3/cmm (130-400); Red Blood Count 3.91 10^6/uL (4.1-5.3); Red Cell Distribution Width 13.7 % (12.1-15.1); White Blood Count 5.4 10^3/uL (4.0-10.0)
[2021-08-17] MEDS: ascorbic acid 500 mg Tablet PO (09:19)
[2021-08-17] MEDS: zinc gluconate 50 mg Tablet PO (09:19)
[2021-08-17] MEDS: polyethylene glycol 3350 Pkt 17 gm PO (09:19)
[2021-08-17] MEDS: benzonatate 100 mg Capsule PO (09:19)
--- NOTE | 2021-08-17 10:23 | PC.CHAP ---
Pastoral Care Encounter/Spiritual Assessment Type of Contact [] Declined debt and budget counselor visit [] Patient/Family/Request visit [] Outpatient visit [] Follow-up visit [] Physician referral [] Code/Alert [] Routine visit [] Staff referral [] Actively dying [] Patient sleeping [] Family support [] [] Out of room [] Palliative care [] [] Receiving care in room [] Pre-surgical visit [] Trauma [] Long length of stay [] ICU visit [x] Other: Isolation Relational/Emotional Strength [] Patient feels connected with others/family/visitors/staff [] Distress [] Loneliness/isolation [] Abandonment Spirituality of Patient [] Person of Lin [] Attends Buddhism of their Lin [] Believes in Prayer [] Reads Bible or Sabianism materials [] There are Spiritual issues to be addressed [employer] Interventions [] Prayer [] Active listening [] Non-anxious presence [] Spiritual/emotional support [] Crisis/trauma care [] Spiritual counseling [] Bereavement support [] Provided bereavement packet [] Provided Bible/devotional materials [] Provided toy/stuffed animal, coloring book to patient or family member [] Provided Communion [] Anointing/[place] [] Salvation [] Completed spiritual assessment [] Other: Impact on Illness or Injury [] Angry [] Fearful [] Anxious [] Often cries [] Exhaustion [] Unable to work [] Unable to attend tenriism [] Unable to walk/stand [] Unable to read [] Unable to drive [] Unable to eat/drink [] Unable to sleep [] Unable to be with family [] Patient intubated [] Other: Summary Isolation Time spent with patient 5 mins
--- NOTE | 2021-08-17 12:08 | P.DS_ITS ---
Discharge Providers Date of Admission: 08/12/21 20:05 Date of Discharge: August 17, 2021 Attending Provider at Admission: Gustabo Duong Attending Provider at Discharge: Azar Banda MD Primary Care Provider: Akira Conrad MD Diagnoses at Discharge Discharge Diagnosis (1) Multifocal pneumonia: Status: Acute (2) Bicytopenia: Status: Acute (3) Hypokalemia: Status: Acute (4) Constipation: Status: Acute (5) DVT prophylaxis: Status: Acute Reason for Visit Reason for Visit: Kidney infection Hospital Course Hospital Course 41-year-old female with no significant past medical history who is presenting to ER with persistent left flank pain. Patient was initially seen on 08/05/2021 with nausea, vomiting, body aches, bilateral flank pain, and dysuria. During this ER visit patient was noted to have normal UA as well as a CT abdomen/pelvis. She was discharged from ER after which she was seen by her PCP for similar complaint and started on Ciprofloxacin. She was also noting a heavy mensturation for which a transvaginal US was performed which did not show any acute abnormalities. Noted subjective fever, chills, nausea and vomiting prior to arrival. No further dysuria. Patient admitted for further work-up. During hospitalization she was found to have been requiring up to 1 to 2 L of oxygen supplementation to maintain saturation over 90%. COVID-19 PCR came back positive. She started on treatment for COVID-19 with dexamethasone. Patient had concerns regarding initiation of remdesivir at the start but she did agree with the treatment after further counseling and all the questions were answered. Patient received 3 doses of remdesivir and has been doing well on room air for last 24 hours both at rest and exertion so decision was made to continue treatment only for 3 days. She is Being discharged in hemodynamically stable condition. Advised to take inhalation treatment with Advair and Spiriva daily. Advised to continue using Eliquis which is a blood thinner for next 2 weeks. Advised to continue working with incentive spirometry and flutter valve while at home. Advised to continue taking dexamethasone 6 mg for next 10 days. Advised to follow-up with his primary care provider within the next 4 to 7 days. Can take his COVID-19 vaccination in 3 months. Advised to continue following social distancing and isolation protocol for next 10 days till August 25. Advised to come back to the ER if fever of more than 101 Fahrenheit, more difficulty breathing than usual or requiring higher oxygen supplementation. Physical Exam Narrative: EXAM NARRATIVE: General: No acute distress, AO x3 HEENT: PERRLA, pupils bilaterally equal and reactive Chest: Normal vesicular breath sounds, occasional rhonchi, equal good air entry bilaterally CVS: S1-S2 regular, no murmurs, no tachycardia, no gallops, no rubs Abdomen: Soft, nontender, no organomegaly, bowel sounds present Neuro: No focal deficits, no facial deformity, AO x3, power 5/5 in all limbs Discharge Data Data Completed and Pending: Completed Studies During Hospitalization Category Date Time Status CT abdomen pelvis w con* [id number] Urge nt Cat Scan 08/11/21 11:[address] chest w con* [id number] Urgent Cat Scan 08/11/21 17:13 Completed Labs from last 24 hours 08/17/21 08/17/21 08/17/21 05:44 05:44 05:44 WBC 5.4 RBC 3.91 L Hgb 11.4 L Hct 34.6 L MCV 88.5 MCH 29.2 MCHC 32.9 RDW 13.7 Plt Count 232 MPV 9.3 Neut % (Auto) 67.3 Lymph % (Auto) 20.3 [place] % (Auto) 11.1 Eos % (Auto) 0.0 Baso % (Auto) 0.0 Neut # (Auto) 3.65 Lymph # (Auto) 1.1 [place] # (Auto) 0.6 Eos # (Auto) 0.0 Baso # (Auto) 0.0 Nucleated RBC % (a uto) 0 Nucleated RBCs # 0.0 Sodium 139 Potassium 4.0 Chloride 106 Carbon Dioxide 21 L Anion Gap 16.0 BUN 11 Creatinine 0.5 GFR Calculation 136.0 H Glucose 107 Calculated Osmolal ity 288 Calcium 8.6 Total Bilirubin 0.2 AST 45 H ALT 61 H Alkaline Phosphata se 51 C-Reactive Protein 2.5 Total Protein 6.3 L Albumin 3.8 Globulin 2.5 Addt'l Data from Hospital Stay: Laboratory Results WBC 5.4 10^3/uL (4.0- 10.0) 08/17/21 05:44 RBC 3.91 10^6/uL (4.1 -5.3) L 08/17/21 05:44 Hgb 11.4 g/dL (11.5-1 5.3) L 08/17/21 05:44 Hct 34.6 % (37.0-47.0 ) L 08/17/21 05:44 MCV 88.5 fl (81-99) 08/17/21 05:44 MCH 29.2 pg (28.0-34. 0) 08/17/21 05:44 MCHC 32.9 g/dL (30.0-3 6.0) 08/17/21 05:44 RDW 13.7 % (12.1-15.1 ) 08/17/21 05:44 Plt Count 232 10^3/cmm (130 -400) 08/17/21 05:44 MPV 9.3 fL (7.4-10.4) 08/17/21 05:44 Neut % (Auto) 67.3 % 08/17/21 05:44 Lymph % (Auto) 20.3 % 08/17/21 05:44 [place] % (Auto) 11.1 % 08/17/21 05:44 Eos % (Auto) 0.0 % 08/17/21 05:44 Baso % (Auto) 0.0 % 08/17/21 05:44 Neut # (Auto) 3.65 10^3/uL (1.8 -7.7) 08/17/21 05:44 Lymph # (Auto) 1.1 10^3/uL (0.8- 4.8) 08/17/21 05:44 [place] # (Auto) 0.6 10^3/uL (0.2- 0.9) 08/17/21 05:44 Eos # (Auto) 0.0 10^3/uL (0.0- 0.8) 08/17/21 05:44 Baso # (Auto) 0.0 10^3/uL (0.0- 0.1) 08/17/21 05:44 Nucleated RBC % (a uto) 0 % 08/17/21 05:44 Nucleated RBCs # 0.0 /100WBC 08/17/21 05:44 D-Dimer 0.58 ug/mIFEU (0- 0.59) 08/14/21 06:32 Sodium 139 mmol/L (136-1 45) 08/17/21 05:44 Potassium 4.0 mmol/L (3.5-5 .1) 08/17/21 05:44 Chloride 106 mmol/L (98-10 7) 08/17/21 05:44 Carbon Dioxide 21 mmol/L (22-29) L 08/17/21 05:44 Anion Gap 16.0 (5-19) 08/17/21 05:44 BUN 11 mg/dL (6-20) 08/17/21 05:44 Creatinine 0.5 mg/dL (0.5-0. 9) 08/17/21 05:44 GFR Calculation 136.0 mL/min (90- 130) H 08/17/21 05:44 Glucose 107 mg/dL (65-115 ) 08/17/21 05:44 Calculated Osmolal ity 288 mOsm/kg (285- 295) 08/17/21 05:44 Calcium 8.6 mg/dL (8.5-10 .5) 08/17/21 05:44 Magnesium 2.2 mg/dL (1.7-2. 3) 08/14/21 06:32 Iron 88 ug/dL (37-145) 08/14/21 06:32 TIBC 266 mcg/dl 08/14/21 06:32 % Saturation 33.0 % (20-50) 08/14/21 06:32 Unsat Iron Binding 178 ug/dL (112-34 7) 08/14/21 06:32 Total Bilirubin 0.2 mg/dL (0.15-1 .2) 08/17/21 05:44 AST 45 U/L (0-32) H 08/17/21 05:44 ALT 61 U/L (0-33) H 08/17/21 05:44 Alkaline Phosphata se 51 IU/L (35-105) 08/17/21 05:44 C-Reactive Protein 2.5 mg/L (0.0-4.9 ) 08/17/21 05:44 Total Protein 6.3 g/dL (6.6-8.7 ) L 08/17/21 05:44 Albumin 3.8 g/dL (3.5-5.2 ) 08/17/21 05:44 Globulin 2.5 g/dL (1.3-4.6 ) 08/17/21 05:44 Lipase 128 U/L (13-60) H 08/11/21 11:42 Procalcitonin 0.04 ng/mL (0-0.5 ) 08/12/21 06:31 TSH 0.41 uIU/mL (0.27 -4.20) 08/14/21 06:32 HCG, Qual Negative (Negati ve) 08/11/21 11:42 Urine Color Yellow (Yellow) 08/11/21 18:08 Urine Appearance Clear (CLEAR) 08/11/21 18:08 Urine pH 6.5 (5-7) 08/11/21 18:08 Ur Specific Gravit y 1.000 (1.005-1.0 30) L 08/11/21 18:08 Urine Protein Trace (Negative) 08/11/21 18:08 Urine Glucose (UA) Norm (Normal) 08/11/21 18:08 Urine Ketones 2+ (Negative) H 08/11/21 18:08 Urine Blood 3+ (Negative) H 08/11/21 18:08 Urine Nitrate Negative (Negati ve) 08/11/21 18:08 Urine Bilirubin Neg (Negative) 08/11/21 18:08 Urine Urobilinogen 1 mg/dL (Negative ) H 08/11/21 18:08 Ur Leukocyte Lisa ase Negative (Negati ve) 08/11/21 18:08 Urine RBC 15-25 /hpf (0-2) H 08/11/21 18:08 Urine WBC 0-4 /hpf (0-5) H 08/11/21 18:08 Ur Squamous Epith Cells 0-4 /hpf (0-5) H 08/11/21 18:08 Amorphous Sediment Not Reportable 08/11/21 18:08 Urine Bacteria Trace /hpf (NONE) 08/11/21 18:08 Hyaline Casts Rare /lpf 08/11/21 11:42 Urine Mucus 1+ /hpf 08/11/21 11:42 Influenza Type A A g Negative (Negati ve) 08/11/21 19:15 Influenza Type B A g Negative (Negati ve) 08/11/21 19:15 SARS-CoV-2 RNA (RT -PCR) Detected (NOT DE TECTED) A 08/12/21 11:55 SARS-CoV-2 Ag (Rap id) Negative (Negati ve) 08/11/21 14:43 Impressions Abdomen/Pelvis CT 08/11/21 11:56 IMPRESSION: 1. Interval development of bilateral lower lobe pneumonias with adjacent areas of pneumonitis. Correlate for possible Covid 19. 2. Small amount of free fluid in the cul-de-sac is physiologic. 3. Normal appendix. 4. No renal stone or obstruction. Chest CT 08/11/21 17:13 IMPRESSION: 1. Bilateral multilobar pneumonia, greatest in the lower lobes. This pattern is typical of COVID-19 pneumonia but can be seen with influenza and organizing pneumonia. Radiation Dose CTDIVOL = (mGy): DLP = 781.65 (mGy-cm) Vitals: Last Vital Signs Temp 98.2 F 08/17/21 11:43 Pulse 62 08/17/21 11:43 Resp 18 08/17/21 11:43 BP 115/71 08/17/21 11:43 Pulse Ox 93 08/17/21 11:43 Discharge Plan Discharge Patient Disposition: Home Condition: Stable Prescriptions: New Advair Diskus 250-50 mcg/dose Blister With Device 1 puff inhalation BID.RESPIRATORY 14 Days Qty: 28 RF: 0 benzonatate 100 mg Capsule 100 mg PO TID PRN (Reason: cough) Qty: 10 RF: 0 pantoprazole 40 mg Tablet,Delayed Release (Dr/Ec) 40 mg PO DAILY@1800 Qty: 14 RF: 0 levofloxacin 500 mg Tablet 500 mg PO DAILY@0600 Qty: 2 RF: 0 dexamethasone 6 mg tablet 6 mg PO DAILY Qty: 7 RF: 0 Spiriva with HandiHaler 18 mcg capsule, w/inhalation device 1 cap inhalation DAILY Qty: 14 RF: 0 Eliquis 2.5 mg tablet 2.5 mg PO BID 14 Days Qty: 28 RF: 0 zinc gluconate 50 mg Tablet 50 mg PO DAILY Qty: 14 RF: 0 Continued hydrocodone-acetaminophen 5-325 mg tablet 1 tab PO Q6H PRN (Reason: pain) Qty: 14 RF: 0 ondansetron 4 mg tablet,disintegrating 4 mg PO Q6H PRN (Reason: nausea and vomiting) Qty: 14 RF: 0 ibuprofen 200 mg Tablet 800 mg PO Q8H PRN (Reason: Pain) RF: 0 Discontinued phentermine 37.5 mg Tablet 37.5 mg PO DAILY RF: 0 Cipro 500 mg Tablet 500 mg PO BID RF: 0 Percocet 5-325 mg Tablet 1 tab PO Q6H PRN (Reason: Pain) RF: 0 Azo Urinary Pain Relief 99.5 mg Tablet 199 mg PO PRN RF: 0 Discharge Orders: Discharge Order (Routine); Ordered 08/17/21 Ordered By: Azar Banda Referrals: Akira Conrad MD [Primary Care Provider] - 7-10 days Discharge Diet: Regular Discharge Activity: Resume usual activity Patient Instructions: Opioid Safety Activity Restrictions/Additional Instructions: Advised to take inhalation treatment with Advair and Spiriva daily. Advised to continue using Eliquis which is a blood thinner for next 2 weeks. Advised to continue working with incentive spirometry and flutter valve while at home. Advised to continue taking dexamethasone 6 mg for next 10 days. Advised to follow-up with his primary care provider within the next 4 to 7 days. Can take his COVID-19 vaccination in 3 months. Advised to continue following social distancing and isolation protocol for next 10 days till August 25. Advised to come back to the ER if fever of more than 101 Fahrenheit, more difficulty breathing than usual or requiring higher oxygen supplementation. Discharge Attestations Time Spent in Discharge Care*: greater than 30 min Specific Discharge Activities: educating patient, discussing with pcp/other providers, discussing with human services case manager/social workers/dc planners, documenting/other paperwork and evaluating patient/reviewing data Status at Discharge: Cognitive status at discharge: cognitively intact , Behavioral status at discharge: cooperative , Functional status at discharge: independent ambulation Overall status at discharge: patient is back to baseline Quality Metrics Clinical Quality Measures During this hospital stay, did patient experience: None Coding Level of Care Code Acute Chg DC note Diagnoses Multifocal pneumonia J18.9 Bicytopenia D75.89 Hypokalemia E87.6 Constipation K59.00 DVT prophylaxis Z29.9
== END 2021-08-17 15:04 | disposition home or self-care (01) | DRG 177 ==
LOC: ER 19:30 → MEDSURG 20:06
PROVIDERS: Internal Medicine; Physician Assistant; Admitting Provider Hospitalist; Emergency Provider Emergency Medicine; PCP Family Medicine; Visit Provider Student in an Organized Health Care Education/Training Program
DX: U07.1 COVID-19 (principal); J12.82 Pneumonia due to coronavirus disease 2019; K59.00 Constipation, unspecified; D69.6 Thrombocytopenia, unspecified; E87.6 Hypokalemia; Z79.891 Long term (current) use of opiate analgesic
CPT/HCPCS: 36415; 71260; 74177; 80053; 81001; 83540; 83550; 83690; 83735; 84145; 84443; 84703; 85025; 85378; 86140; 87040; 87086; 87426; 87635; 87804; 94640; 96361; 96372; 96374; 96375; 96376; 99285; G0378; J1100; J1650; J2270; J2405; J2543; J3480; J7030; Q9967

== ENCOUNTER 2022-01-08 11:33 | Outpatient (CLI) | payer OTHER, BC, MEDICAID, SELFPAY ==
--- NOTE | 2022-01-08 11:45 | MM_ITS ---
WS: [id number] Bilateral screening 3D tomosynthesis digital mammogram, 01/08/2022 Clinical Data: SCREENING Comparison: 12/18/2011. Findings: The breast parenchymal pattern shows retroglandular tissue No spiculated masses or clustered calcific ations are seen. There are no secondary signs of carcinoma. MM/[place] [id number] Impression: 1. Negative bilateral mammogram unchanged. 2. Recommend annual screening mammograms. . BIRADS: 1-Negative FOLLOW UP: 1 Year Follow-up The CAD checker product design was used.
== END 2022-01-08 11:34 | disposition home or self-care (01) ==
LOC: RAD 11:36
PROVIDERS: PCP Family Medicine; Visit Provider Family Medicine
DX: Z12.31 Encounter for screening mammogram for malignant neoplasm of breast (principal)
CPT/HCPCS: 77063; 77067

== ENCOUNTER 2023-01-21 13:50 | Outpatient (CLI) | payer BC, MEDICAID, SELFPAY ==
--- NOTE | 2023-01-21 14:00 | MM_ITS ---
WS: [id number] BILATERAL 3D TOMOSYNTHESIS DIGITAL SCREENING MAMMOGRAPHY WITH CAD CLINICAL INFORMATION: SCREENING HISTORY: Screening mammogram. Bilateral breast soreness. Chronic nipple discharge since prior pregnan cy COMPARISON: 2021 TECHNIQUE: Bilateral CC and MLO views. FINDINGS: The breasts are composed of heterogeneous fibroglandular density tissue, which can limit the detectio n of small underlying mass lesions. No suspicious mass, asymmetry, calcifications, or architectural d istortion. No evidence of malignancy. A few incidental punctate calcifications. Vascular calcificatio n. MM/[id number] IMPRESSION: BI-RADS: 2-Benign FOLLOW UP: 1 Year Follow-up Recommend return to annual screening mammography.
== END 2023-01-21 13:51 | disposition home or self-care (01) ==
PROVIDERS: PCP Family Medicine; Visit Provider Family Medicine
DX: Z12.31 Encounter for screening mammogram for malignant neoplasm of breast (principal)
CPT/HCPCS: 77063; 77067

== ENCOUNTER → 2023-07-01 10:18 | Outpatient (BNVA) | payer BC, MEDICAID, SELFPAY | PROVIDERS: PCP Family Medicine; Visit Provider Family Medicine | DX: M25.512 Pain in left shoulder (principal); Z12.4 Encounter for screening for malignant neoplasm of cervix; R30.0 Dysuria; R10.2 Pelvic and perineal pain; Z78.9 Other specified health status; R35.0 Frequency of micturition | CPT/HCPCS: 81000; 87086; 87624 ==

== ENCOUNTER 2023-07-10 06:16 | Outpatient (CLI) | payer BC, MEDICAID, SELFPAY ==
--- NOTE | 2023-07-10 06:30 | US_ITS ---
WS: [id number] US pelv w/transvag [id number] HISTORY: Pelvic pain COMPARISON: 08/09/2021 Uterus: 8.8 cm x 4.6 cm x 4.3 cm. Normal size anteverted uterus. No fibroid or mass. Endometrium: 1.1 cm. Normal. Right ovary: 5.3 cm x 3.3 cm x 4.1 cm. RIGHT ovary is slightly enlarged. RIGHT ovary contains a compl ex cyst with low-level echoes measuring 3.1 x 3.1 x 3.2 cm. On a few images there does appear to be a fluid/fluid level. The adjacent ovary has normal vascularity. Left ovary: 3.1 cm x 3.2 cm x 1.7 cm. Normal size and vascularity, no cystic or solid masses. In the LEFT adnexa there is prominent varicosities. Small amount of free fluid is identified within the RIGHT adnexa. IMPRESSION: 1. Hemorrhagic cyst RIGHT ovary measures 3.1 x 3.1 x 3.2 cm. O-RADS 2, almost certainly benign. 2. LEFT pelvic varicosities. Likely due to pelvic venous congestion.
== END 2023-07-10 06:17 | disposition home or self-care (01) ==
PROVIDERS: PCP Family Medicine; Visit Provider Family Medicine
DX: R10.2 Pelvic and perineal pain (principal); N83.201 Unspecified ovarian cyst, right side
CPT/HCPCS: 76830; 76856

== ENCOUNTER → 2023-09-12 09:19 | Outpatient (BNVA) | payer OTHER, BC, MEDICAID, SELFPAY | PROVIDERS: PCP Family Medicine; Visit Provider Family Medicine | DX: Z51.81 Encounter for therapeutic drug level monitoring (principal); R10.2 Pelvic and perineal pain; R53.81 Other malaise; R53.83 Other fatigue; Z13.1 Encounter for screening for diabetes mellitus | CPT/HCPCS: 80053; 83036; 84443; 85025; 86141 ==

== ENCOUNTER 2023-10-03 15:54 | Outpatient (CLI) | payer OTHER, BC, MEDICAID, SELFPAY ==
[2023-10-03] MEDS: iohexol 350 mg/mL 500 mL Btl (per mL) PO (16:18)
--- NOTE | 2023-10-03 17:00 | CT_ITS ---
WS: [id number] CT ABDOMEN AND PELVIS WITH CONTRAST HISTORY: Abdominal pain TECHNIQUE: Imaging performed of the abdomen and pelvis with IV contrast. Single phase imaging of the abdomen. Coronal and sagittal reformats are submitted. All CT scans at [facility] use at [address] one of these dose optimization techniques: automated exposure control; mA and/or kV adjustment per patient size (includes targeted exams where dose is matched to clinical indication); or iterative re construction. IV CONTRAST: Omnipaque 350; 100 mL IV. Oral contrast: Yes. DLP: 844.64 mGy.cm COMPARISON: 08/11/2021 Lower thorax: Previously described consolidations noted on 08/11/2021 have resolved. Heart is normal size. Small hiatal hernia. Liver/biliary system: Normal size with no intrahepatic dilatation. Gallbladder: Gallbladder is contracted which is probably due to nonfasting state. No adjacent inflamm ation. Pancreas: Normal size pancreas and pancreatic duct. No adjacent inflammation. Spleen: Normal size spleen. No mass or infarct. Adrenal glands: Normal. Right kidney: Normal. Left kidney: Normal. Aorta: Normal. Lymphadenopathy: None. Free fluid: None. GI tract: Normally distended stomach. No small bowel obstruction. Moderate constipation. Appendix is normal. Abdominal wall: Unremarkable abdominal wall. No hernia. Pelvis: No free fluid or adenopathy within the pelvis. Engorged LEFT ovarian vein correlating with pe lvic congestion syndrome. Bones: Unremarkable. IMPRESSION: 1. No acute abdominal or pelvic abnormalities. 2. No ascites or adenopathy. 3. Normal appendix. 4. Mild diffuse constipation. 5. LEFT ovarian vein engorgement consistent with pelvic congestion syndrome.
[2023-10-03] MEDS: iohexol 350 mg/mL 500 mL Btl (per mL) IV (17:03)
== END 2023-10-03 15:55 | disposition home or self-care (01) ==
LOC: RAD 15:54
PROVIDERS: PCP Family Medicine; Visit Provider Family Medicine
DX: R10.2 Pelvic and perineal pain (principal); K59.00 Constipation, unspecified; I87.8 Other specified disorders of veins
CPT/HCPCS: 74177; Q9967

== ENCOUNTER → 2023-10-21 08:36 | Outpatient (BNVA) | payer OTHER, BC, MEDICAID, SELFPAY | PROVIDERS: PCP Family Medicine; Visit Provider Family Medicine | DX: R10.2 Pelvic and perineal pain (principal) | CPT/HCPCS: 80053; 85025 ==

== ENCOUNTER → 2023-10-25 08:08 | Outpatient (BNVA) | payer OTHER, BC, MEDICAID, SELFPAY | PROVIDERS: PCP Family Medicine; Visit Provider Family Medicine | DX: R73.09 Other abnormal glucose (principal) | CPT/HCPCS: 83036 ==

== ENCOUNTER 2023-11-04 11:23 | Outpatient (CLI) | payer OTHER, BC, MEDICAID, SELFPAY | END 2023-11-04 11:24 | disposition home or self-care (01) | PROVIDERS: PCP Family Medicine; Visit Provider Family Medicine | DX: N94.89 Other specified conditions associated with female genital organs and menstrual cycle (principal); R10.2 Pelvic and perineal pain | CPT/HCPCS: 80053; 81000; 85025; 87040; 87086 ==

== ENCOUNTER 2023-11-06 12:22 | Outpatient (CLI) | payer BC, MEDICAID, SELFPAY ==
--- NOTE | 2023-11-06 12:29 | CT_ITS ---
WS: [id number] CT ABDOMEN PELVIS TECHNIQUE: Noncontrast CT of the abdomen and contrast-enhanced CT of the abdomen and pelvis with jose nal and sagittal reformatted images. CLINICAL INFORMATION: S/P LEFT GONADAL VEIN EMBOLIZATION WITH PELVIC PAIN COMPARISON: CT 10/03/2023 DLP: 1796.[address] scans at [facility] use at least one of these dose optimization techniques: automated e xposure control; mA and/or kV adjustment per patient size (includes targeted exams where dose is matc hed to clinical indication); or iterative reconstruction. FINDINGS: Status post LEFT ovarian vein embolization. Previously described tortuous pelvic varicosities appear less distended and less prominent today. Multi follicular ovaries bilaterally. RIGHT ovarian cyst doc suring 18 mm. No significant free fluid in the pelvis. Lung bases are well aerated. Mild diffuse fatty infiltration of the liver. Mild hepatomegaly. Normal gallbladder. Normal spleen. S mall esophageal hernia. Adrenal glands are normal. Normal pancreatic parenchymal enhancement. Normal caliber abdominal aorta. No hydronephrosis in either kidney. Normal renal parenchymal enhancement. No other suspicious findings. IMPRESSION: 1. Status post LEFT ovarian vein embolization is new compared to previous. 2. Previously described pelvic varicosities appear somewhat improved with decreased distention. 3. No other significant interval changes.
[2023-11-06] MEDS: iohexol 350 mg/mL 100 mL Btl IV (13:13)
== END 2023-11-06 12:23 | disposition home or self-care (01) ==
LOC: RAD 12:22
PROVIDERS: PCP Family Medicine; Visit Provider Nurse Practitioner Family
DX: R10.2 Pelvic and perineal pain (principal)
CPT/HCPCS: 74178; Q9967

== ENCOUNTER → 2024-08-04 14:44 | Outpatient (BNVA) | payer OTHER, SELFPAY | PROVIDERS: PCP Family Medicine; Visit Provider Family Medicine | DX: N39.0 Urinary tract infection, site not specified (principal) | CPT/HCPCS: 81000; 87086 ==

== ENCOUNTER 2024-10-08 07:56 | Outpatient (CLI) | payer OTHER, SELFPAY ==
--- NOTE | 2024-10-08 08:00 | MM_ITS ---
WS: [id number] BILATERAL 3D TOMOSYNTHESIS DIGITAL DIAGNOSTIC MAMMOGRAPHY WITH CAD CLINICAL INFORMATION: Breast lump on the right at 12 o'clock HISTORY: RIGHT breast lump. Greenish discharge. COMPARISON: 2022 TECHNIQUE: Bilateral CC, MLO, and ML views. FINDINGS: The breasts are composed of heterogeneous fibroglandular density, which can limit the detection of sm all underlying mass lesions. Incidental calcification RIGHT breast. No suspicious parenchymal abnorma lities deep to the palpable marker. Unremarkable LEFT breast. Vascular calcification. ULTRASOUND BREAST RIGHT TECHNIQUE: Ultrasound right breast focused area of concern. CLINICAL INFORMATION: Breast lump on the right at 12 o'clock FINDINGS: Ultrasound RIGHT breast 11 o'clock and 12:00 position patient directed. Dense underlying parenchymal tissue. No suspicious cystic or solid lesions. Subareolar RIGHT breast demonstrates mild ductal ectas ia. Incidental tiny cyst or dilated duct measuring 5 mm. MM/MM diag BI tomosynthesis [id number] IMPRESSION: DENSITY: The breasts are heterogeneously dense, which may obscure small masses. BI-RADS: 2 - Benign FOLLOW UP: 1 Year Follow-up Recommend return to annual screening mammography.
== END 2024-10-08 07:57 | disposition home or self-care (01) ==
LOC: RAD 07:58
PROVIDERS: PCP Family Medicine; Visit Provider Family Medicine
DX: N63.11 Unspecified lump in the right breast, upper outer quadrant (principal); R92.333 Mammographic heterogeneous density, bilateral breasts; R92.323 Mammographic fibroglandular density, bilateral breasts; R92.1 Mammographic calcification found on diagnostic imaging of breast; N60.41 Mammary duct ectasia of right breast
CPT/HCPCS: 76642; 77062; G0279

== ENCOUNTER → 2025-01-14 12:09 | Outpatient (BNVA) | payer OTHER, SELFPAY | PROVIDERS: PCP Family Medicine; Visit Provider Nurse Practitioner | DX: R39.9 Unspecified symptoms and signs involving the genitourinary system (principal) | CPT/HCPCS: 81000; 87086 ==

== ENCOUNTER → 2025-03-25 13:07 | Outpatient (BNVA) | payer OTHER, SELFPAY | PROVIDERS: PCP Family Medicine; Visit Provider Nurse Practitioner | DX: J02.9 Acute pharyngitis, unspecified (principal) | CPT/HCPCS: 87880 ==